=== PATIENT | male | born 1950 | race Caucasian/White ===

== ENCOUNTER 2023-06-01 08:44 | Inpatient (IN) ==
--- NOTE | 2023-06-01 09:14 | Emergency Department Note ---
History of Present Illness General Chief complaint: Wound Stated complaint: POSSIBLE INFECTION IN WOUND Time Seen by Provider: 06/01/23 08:56 History of Present Illness 72-year-old incarcerated male with past medical history significant for A-fib on Eliquis, thoracic aortic aneurysm, venous insufficiency, hypertension, hyperlipidemia, CVA who presents to the emergency department via EMS for evaluation of left leg wound infection. Patient is relatively poor historian and does have dementia at baseline. Reportedly he has a chronic wound to the left leg and there is concerns for infection. He notes increasing redness, warmth, pain at the wound site as well as fevers. Patient is reportedly more confused than usual. He does receive wound care at the present and is currently on doxycycline twice daily since 05/24. Patient denies any nausea/vomiting, chest pain, shortness of breath, abdominal pain, diarrhea/constipation, urinary symptoms. Home Medications Medication Instructions Recorded Confirmed Type apixaban 5 mg tablet (Eliquis) 5 mg PO BID 06/30/21 06/01/23 History rosuvastatin 10 mg tablet 10 mg PO QAM 11/11/21 06/01/23 History pantoprazole 20 mg tablet,delayed 20 mg PO QAM 10/09/22 06/01/23 History release (Protonix) pentoxifylline 400 mg 400 mg PO BID 10/09/22 06/01/23 History tablet,extended release ammonium lactate 12 % topical cream 1 applic topical DAILY 03/26/23 03/26/23 History ascorbic acid (vitamin C) 500 mg 500 mg PO BID 03/26/23 06/01/23 History chewable tablet cetirizine 10 mg tablet 10 mg PO DAILY 03/26/23 03/26/23 History clotrimazole 1 % topical cream 1 applic topical BID 03/26/23 03/26/23 History donepezil 10 mg tablet 10 mg PO QAM 03/26/23 06/01/23 History melatonin 5 mg chewable tablet 0 mg PO HS 03/26/23 03/26/23 History metoprolol tartrate 50 mg tablet 25 mg PO DAILY 03/26/23 03/26/23 History (Lopressor) zinc sulfate 50 mg zinc (220 mg) 50 mg PO DAILY 03/26/23 06/01/23 History capsule amoxicillin 875 mg-potassium 1 tab PO BID #14 tabs 03/27/23 Rx clavulanate 125 mg tablet doxycycline hyclate 100 mg BID 06/01/23 06/01/23 History metoprolol tartrate 12.5 mg DAILY 06/01/23 06/01/23 History Allergies Allergy/AdvReac Type Severity Reaction Status Date / Time sulfamethoxazole Allergy Severe Unknown Verified 05/17/23 13:52 [From Bactrim] trimethoprim [From Bactrim] Allergy Severe Unknown Verified 05/17/23 13:52 clindamycin Allergy Intermediate Unknown Verified 05/17/23 13:52 levofloxacin [From Levaquin] Allergy Intermediate Unknown Verified 05/17/23 13:52 onion Allergy Mild Unknown Verified 05/17/23 13:52 mayonnaise Allergy Unknown Verified 05/17/23 13:52 sodium chloride AdvReac Unknown CONTRAINDIC Verified 05/17/23 13:52 [From [place] Nasal] ATED Past Med/Surg History Medical History CVA (cerebrovascular accident) DVT (deep venous thrombosis) GERD (gastroesophageal reflux disease) H/O: HTN (hypertension) Surgical History No pertinent past surgical history Social History Smoking Status: Unknown if ever smoked Preferred Language: Latvian Feels Safe at Home: Hesitant to Answer Physical Exam Vital Signs Vital Signs - 24 hr 06/01/23 08:45 06/01/23 09:07 06/01/23 09:37 Temperature 37.4 C Temperature Source Oral Pulse Rate 79 74 Pulse Rate [Apical] 73 Pulse Rhythm Regular Pulse Rhythm [Apical] Regular Pulse Strength Normal Pulse Strength [Apical] Normal Respiratory Rate 18 18 Respiratory Effort / Characteristics Non-Labored Spontaneous Non-Labored Spontaneous Respiratory Depth Normal Normal Respiratory Pattern Regular Regular Blood Pressure 137/92 Blood Pressure [Right Arm] 134/86 Blood Pressure Mean 107 Blood Pressure Mean [Right Arm] 102 Blood Pressure Position Sitting Blood Pressure Position [Right Arm] Sitting Pulse Oximetry 94 94 Oxygen Delivery Method Room Air Room Air Sepsis Recent Fever Within 48 Hours Yes Sepsis New/Unexplained Change in Mental Status Yes Sepsis Action Taken by Nursing No Action Required 06/01/23 11:37 Temperature Temperature Source Pulse Rate Pulse Rate [Apical] 70 Pulse Rhythm Pulse Rhythm [Apical] Regular Pulse Strength Pulse Strength [Apical] Normal Respiratory Rate 20 Respiratory Effort / Characteristics Non-Labored Spontaneous Respiratory Depth Normal Respiratory Pattern Regular Blood Pressure Blood Pressure [Right Arm] 141/85 H Blood Pressure Mean Blood Pressure Mean [Right Arm] 103 Blood Pressure Position Blood Pressure Position [Right Arm] Sitting Pulse Oximetry 97 Oxygen Delivery Method Room Air Sepsis Recent Fever Within 48 Hours Sepsis New/Unexplained Change in Mental Status Sepsis Action Taken by Nursing Constitutional: alert and oriented x3. no acute distress. Nontoxic HEENT: normocephalic, atraumatic. normal conjunctiva.PERRLA. EOM's grossly intact. Neck: neck is supple, nontender. Respiratory: lungs are clear to auscultation without wheezes, rhonchi, or rales bilaterally. equal chest rise. normal respiratory effort, no accessory muscle use. Cardiovascular: normal heart sounds without murmur. regular rate and rhythm. GI: abdomen is soft, nontender. No palpable masses. No rebound tenderness or guarding. MSK: Venous stasis skin changes to bilateral lower extremities. Small ulcerations of the left medial ankle with surrounding erythema that extends to the mid calf. Mild purulent drainage and induration as well as tenderness with palpation. Lower extremity range of motion intact Peripheral vascular: Lower extremities warm and well perfused with palpable pedal pulses. Brisk capillary refill of all digits. Motor function and sensation grossly intact Neuro: without focal neuro deficits. Answers questions appropriately, follows commands CNII-XII intact. Speech clear, tongue midline, without facial droop. Strength equal throughout all for extremities. Psych:appropriate mood and affect. Course Administered Medications Vancomycin HCl 2,250 mg/ (Sodium Chloride) 545 mls @ 200 mls/hr IV NOW ONE Stop: 06/01/23 14:03 Last Admin: 06/01/23 13:08 Dose: 200 mls/hr Documented By: DEREK Discontinued Medications Cefepime HCl (Maxipime) 2,000 mg in 20 mls @ 5 mls/min IV NOW STA; Protocol Stop: 06/01/23 11:23 Last Admin: 06/01/23 11:33 Dose: 5 mls/min Documented By: DEREK Medical Decision Making Differential Diagnosis cellulitis, venous stasis ulcers, PAD, sepsis, DVT as well as other pathologies Laboratory Data Attestation: I reviewed the patient's lab results. 06/01/23 09:30 06/01/23 09:30 Lab Results 06/01/23 06/01/23 06/01/23 Range/Units 09:30 09:30 09:30 WBC 7.79 (4.8-10.8) K/ul RBC 4.54 L (4.70-6.10) M/uL Hgb 13.4 L (14.0-18.0) g/dl Hct 38.7 L (42.0-52.0) % MCV 85.2 (80.0-100.0) fL MCH 29.5 (25.0-34.0) pg MCHC 34.6 (32.0-36.0) g/dL RDW Std Deviation 42.1 (36.4-46.3) fL RDW Coeff of Ruben 13.6 (11.5-14.5) % Plt Count 141 (130-400) K/uL MPV 11.1 (9.4-12.4) fL Immature Gran % (Auto) 0.1 % Neut % (Auto) 87.7 % Lymph % (Auto) 4.7 % [place] % (Auto) 6.8 % Eos % (Auto) 0.4 % Baso % (Auto) 0.3 % Neut # (Auto) 6.83 H (1.40-6.50) K/uL Lymph # (Auto) 0.37 L (1.20-3.40) K/uL [place] # (Auto) 0.53 (0.11-0.59) K/uL Eos # (Auto) 0.03 (0.00-0.50) K/uL Baso # (Auto) 0.02 (0.00-0.20) K/uL Immature Gran # (Auto) 0.01 (0.01-0.20) K/uL Sodium 137 (136-145) mmol/L Potassium 4.0 (3.5-5.1) mmol/L Chloride 103 (98-107) mmol/L Carbon Dioxide 28 (21-32) mmol/L Anion Gap 6 (3-11) BUN 20 (6-23) mg/dl Creatinine 0.82 (0.6-1.4) mg/dl Est Cr Clr Drug Dosing 90.7 ml/min Est GFR ( Amer) 103.1 ml/min Est GFR (Non-Af Amer) 89.0 ml/min BUN/Creatinine Ratio 24.4 H (10-20) Glucose 97 (70-99(Fasting)) mg/dl Lactate 1.2 (0.4-2.0) mmol/L Calcium 10.3 (8.6-10.3) mg/dl Total Bilirubin 1.4 H (0.2-1.0) mg/dl AST 20 (13-39) U/L ALT 12 (7-52) U/L Alkaline Phosphatase 71 (34-104) U/L Troponin I High Sens 11.7 (0-20) pg/ml Total Protein 8.1 (6.0-8.3) gm/dl Albumin 4.7 (3.4-5.0) gm/dl Globulin 3.4 (2.5-4.0) gm/dl Albumin/Globulin Ratio 1.4 (0.9-2) Imaging Data My Impression: CXR per my interpretation without focal consolidation, pneumothorax, pleural effusion Radiologist's Impression: Chest X-Ray 06/01/23 09:06 XR chest 1V portable HISTORY: 72 years-old Male CP acute chest pain COMPARISON: 05/17/2023 TECHNIQUE: AP view of the chest FINDINGS: Cardiac silhouette is enlarged. Interval removal of the right-sided PICC. No pneumothorax, pleural effusion, airspace consolidation or pulmonary edema. Bones appear grossly intact. IMPRESSION: Cardiomegaly without acute process. ACT 112: Negative or not required by law. The above report was generated using voice recognition software. It may contain grammatical, syntax or spelling errors. Electronically signed by: Sherwin Goode M.D. 06/01/2023 9:56 AM Venous Doppler Study 06/01/23 09:49 LEFT LOWER EXTREMITY VENOUS DOPPLER HISTORY: Acute pain and swelling of the left lower extremity. History of nonocclusive thrombus within the left iliac, common femoral, superficial femoral, popliteal, posterior tibial and peroneal veins. r/o DVT COMPARISON STUDY: 10/09/2022. FINDINGS: Chronic nonocclusive thrombus is again noted within the common femoral and superficial femoral veins extending into the popliteal vein. Limited evaluation of the peroneal and posterior tibial veins. No acute DVT identified. Subcutaneous edema. Mildly enlarging lymph chain lymph nodes measure up to 1.3 cm in short axis. IMPRESSION: 2. No acute DVT identified. 2. Chronic nonocclusive DVT redemonstrated. 3. Nonspecific mildly enlarged inguinal chain lymph nodes. ACT 112: Negative or not required by law. Electronically signed by: Sherwin Goode M.D. 06/01/2023 1:09 PM MDM Narrative 72-year-old inmate male who presents to the emergency department for evaluation of left leg cellulitis. Review of pertinent visits and past medical history performed. Vital signs in ED stable, afebrile. Patient was seen and evaluated as above. IV access was established and labs were obtained. CBC without leukocytosis. No acute anemia. CMP without significant electrolyte abnormal ities. Renal function within normal limits. LFTs unremarkable. Lactate 1.2. Troponin negative. EKG demonstrates atrial fibrillation with incomplete right bundle branch block at a rate of 81 bpm. No evidence of ischemic changes or ST wave abnormalities. No significant change when compared to EKG performed on 03/26/2023. CXR performed and unremarkable. A venous duplex of the left lower leg was also performed due to swelling and history of DVT and negative for acute DVT. On exam, patient is nontoxic-appearing in no acute distress. Hemodynamically stable. He has chronic venous stasis skin changes to the bilateral lower extremities with 2 small ulcerations to the left medial ankle at the malleolus. There is surrounding erythema, warmth induration and drainage. No foul odor. The extremities are neurovascularly intact with good pulses. Wound and blood cultures were obtained. Patient was reassessed on multiple occasions throughout ED stay and remained stable. He was updated on exam findings and test results. His evidence of cellulitis secondary to his chronic leg wounds. He is not septic. He has failed outpatient antibiotic therapy however and I am recommending admission to the hospital for IV antibiotics. Patient agreeable to this plan. Case was discussed with hospitalist physician orthotic assistant, Earlene Mccann, who graciously accepted patient to her service. Patient was given IV vancomycin and cefepime empirically pending wound and blood cultures. He was admitted in stable condition. Case was discussed with ED attending, Dr. Hodge who agrees with work-up and treatment plan Impression & Plan Venous stasis ulcer of left lower extremity, Cellulitis of left leg Discharge Plan Visit Data Chief Complaint: Wound Stated Complaint: POSSIBLE INFECTION IN WOUND ED Provider: Shannon Hodge ED Midlevel Provider: Minoo Castillo Discharge Problem: Venous stasis ulcer of left lower extremity, Cellulitis of left leg Patient Disposition: Admitted As Inpatient Forms Stand Alone Forms: My [facility] Prescriptions Prescriptions: No Action Eliquis 5 mg Tablet 5 mg PO BID cetirizine 10 mg Tablet 10 mg PO DAILY donepezil 10 mg Tablet 10 mg PO QAM melatonin 5 mg Tablet,Chewable 0 mg PO HS metoprolol tartrate [Lopressor] 50 mg Tablet 25 mg PO DAILY ammonium lactate 12 % Cream 1 applic TOPICAL DAILY Rx Instructions: APPLY CREAM TOPICALLY ONCE DAILY, WITH DRESSING CHANGE. ascorbic acid (vitamin C) 500 mg Tablet,Chewable 500 mg PO BID zinc sulfate 50 mg zinc (220 mg) Capsule 50 mg PO DAILY clotrimazole 1 % Cream 1 applic TOPICAL BID Rx Instructions: APPLY TWICE DAILY BETWEEN TOES amoxicillin-pot clavulanate 875-125 mg tablet 1 tab PO BID Qty: 14 0RF rosuvastatin 10 mg Tablet 10 mg PO QAM pentoxifylline [Trental] 400 mg Tablet Extended Release 400 mg PO BID Rx Instructions: must administer with a meal/food pantoprazole [Protonix] 20 mg Tablet,Delayed Release (Dr/Ec) 20 mg PO QAM doxycycline hyclate 100 mg BID metoprolol tartrate 25 mg tablet 12.5 mg DAILY [facility]errals [facility] -
[2023-06-01 09:56] LABS: Basophils # (auto) 0.02 K/uL (0.00-0.20); Basophils % (auto) 0.3 %; Eosinophils # (auto) 0.03 K/uL (0.00-0.50); Eosinophils % (auto) 0.4 %; Hematocrit (blood only) 38.7 % (42.0-52.0); Hemoglobin 13.4 g/dl (14.0-18.0); Immature Granulocytes # (auto) 0.01 K/uL (0.01-0.20); Immature Granulocytes % (auto) 0.1 %; Lymphocytes # (auto) 0.37 K/uL (1.20-3.40); Lymphocytes % (auto) 4.7 %; Mean Corpuscular Hemoglobin 29.5 pg (25.0-34.0); Mean Corpuscular Hgb Conc 34.6 g/dL (32.0-36.0); Mean Corpuscular Volume 85.2 fL (80.0-100.0); Mean Platelet Volume 11.1 fL (9.4-12.4); Monocytes # (auto) 0.53 K/uL (0.11-0.59); Monocytes % (auto) 6.8 %; Neutrophils # (auto) 6.83 K/uL (1.40-6.50); Neutrophils % (auto) 87.7 %; Platelet Count 141 K/uL (130-400); RDW Coefficient of Variation 13.6 % (11.5-14.5); RDW Standard Deviation 42.1 fL (36.4-46.3); Red Blood Count 4.54 M/uL (4.70-6.10); White Blood Count 7.79 K/ul (4.8-10.8)
--- NOTE | 2023-06-01 09:57 | XRay Report ---
XR chest 1V portable HISTORY: 72 years-old Male CP acute chest pain COMPARISON: 05/17/2023 TECHNIQUE: AP view of the chest FINDINGS: Cardiac silhouette is enlarged. Interval removal of the right-sided PICC. No pneumothorax, pleural ef fusion, airspace consolidation or pulmonary edema. Bones appear grossly intact. IMPRESSION: Cardiomegaly without acute process. ACT 112: Negative or not required by law. The above report was generated using voice recognition software. It may contain grammatical, syntax o r spelling errors. Electronically signed by: Sherwin Goode M.D. 06/01/2023 9:56 AM
[2023-06-01 10:17] LABS: Albumin Level 4.7 gm/dl (3.4-5.0); Bilirubin,Total 1.4 mg/dl (0.2-1.0); Calcium 10.3 mg/dl (8.6-10.3)
[2023-06-01 10:23] LABS: Albumin Globulin Ratio 1.4 (0.9-2); BUN Creatinine Ratio 24.4 (10-20); Creatinine Clr Calc Pharmacy 90.7 ml/min; Est GFR (African American) 103.1 ml/min; Globulin 3.4 gm/dl (2.5-4.0); Total Protein 8.1 gm/dl (6.0-8.3); Troponin I High Sensitivity 11.7 pg/ml (0-20)
[2023-06-01] MEDS ORDERED: CEFEPIME 2,000 MG/20 ML VIAL IV STA (11:20)
[2023-06-01] MEDS ORDERED: VANCOMYCIN HCL 2,250 MG in SODIUM CHLORIDE 0.9% 500 ML IV ONE (11:20)
[2023-06-01] MEDS ORDERED: VANCOMYCIN CONSULT ACTIVE PRN ×2 (11:20→17:16)
--- NOTE | 2023-06-01 13:11 | Ultrasound Report ---
LEFT LOWER EXTREMITY VENOUS DOPPLER HISTORY: Acute pain and swelling of the left lower extremity. History of nonocclusive thrombus within the left iliac, common femoral, superficial femoral, popliteal, posterior tibial and peroneal veins. r/o DVT COMPARISON STUDY: 10/09/2022. FINDINGS: Chronic nonocclusive thrombus is again noted within the common femoral and superficial femo ral veins extending into the popliteal vein. Limited evaluation of the peroneal and posterior tibial veins. No acute DVT identified. Subcutaneous edema. Mildly enlarging lymph chain lymph nodes measure up to 1.3 cm in short axis. IMPRESSION: 2. No acute DVT identified. 2. Chronic nonocclusive DVT redemonstrated. 3. Nonspecific mildly enlarged inguinal chain lymph nodes. ACT 112: Negative or not required by law. Electronically signed by: Sherwin Goode M.D. 06/01/2023 1:09 PM
--- NOTE | 2023-06-01 13:18 | History & Physical Report ---
Date of Service June 01, 2023 Assessment & Plan (1) Cellulitis of left leg: (2) Inguinal lymphadenopathy: (3) Chronic bilateral deep venous thrombosis (DVT) of extremities: (4) Ulcer of left foot: (5) Venous insufficiency of both lower extremities: (6) Leg wound, left: (7) Venous stasis ulcer of left lower extremity: (8) Confusion: (9) Atrial fibrillation: (10) HLD (hyperlipidemia): Plan Pt is a 72yo incarcerated male with PMHx significant for PVD with chronic ulce rs, atrial fibrillation on Eliquis, HTN, GERD, Dementia, Hx of thoracic aneurysm presenting from the halfway with concern for increasing confusion in the setting of a LLE chronic wound. Cellulitis/Chronic wound of LLE/PVD/Chronic DVT Per documentation from the halfway, pt was sent over due to "wound on LLE, calf warm to touch, severe pain when moving and evaluating wound, increased confusion". Guards present at bedside note pt resides in Dementia unit at the halfway and is confused at baseline. They state he usually has eyes closed as he was during the exam. On exam, about a 2cm x 2cm draining ulceration noted on left medial ankle in the setting of noted chronic PVD changes to left ankle and foot [facility] paperwork noted temp of 101.9 today, pt currently afebrile WBC wnl, venous doppler of LLE noting only chronic DVT with increased inguinal lymph node size. 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 Consider further imaging of inguinal lymphadenopathy. MRI ankle ordered and pending, wound Cx and Blood Cx x2 ordered by ED and are pending. Was being treated with Doxycycline 100mg BID from 05/24 HVAC ESTIMATOR, will hold. Received IV Vancomycin and Cefepime in the ED, continue. Consider narrowing based on culture results. Tylenol 1000mg q8 for mild-mod pain, IV dilaudid 0.25mg q6h for severe pain AM hemoglobin a1c pending- pt with no previous dx of diabetes Continue HVAC ESTIMATOR zinc sulfate and trental 400mg BID. Wound consult- appreciate further recommendations. AMS/Confusion/Dementia Guards present at bedside note pt resides in Dementia unit at the halfway and is confused at baseline. They state he usually has eyes closed as he was during the exam, does not appear to be increasingly confused. Head CT ordered Continue HVAC ESTIMATOR donepezil 10mg daily Inguinal lymphadenopathy Doppler US of LLE noted increased inguinal lymph node size Previously noted and pt was referred to medical oncology who referred to General Surgery for biopsy. See General Surgery note in chart from 04/2022, pt was for biopsy but refused at that time. Consider further workup now that lymph nodes are increasing in size Chronic Medical Problems: A fib- continue HVAC ESTIMATOR metoprolol tartrate 12.5mg daily with Eliquis 5mg BID GERD- per halfway documentation pt on both omeprazole 20mg daily and pantoprazole 20mg daily. Omeprazole discontinued, continue pantoprazole 20mg daily only and increase dose as needed after discharge. HLD- continue HVAC ESTIMATOR rosuvastatin FEN/Diet: NPO with speech eval in the setting of AMS/increased confusion, LR@80 DVT prophylaxis: On Eliquis 5mg BID Dispo: Obs, med surg with tele due to a fib CODE STATUS: Pt with signed documentation from the halfway from 2015 noting he wants CPR, resp ventilation, blood products and abx. Does not want tube feeds if the need for that arises. History of Present Illness Chief Complaint: Wound Primary Care Provider: ZARIA Sylvie Pt is a 72yo incarcerated male with PMHx significant for PVD with chronic ulcers, atrial fibrillation on Eliquis, HTN, GERD, Dementia, Hx of thoracic aneurysm presenting from the halfway with concern for increasing confusion in the setting of a LLE chronic wound. Pt sitting with eyes closed, muttering when stimulated but with generally unintelligible speech. Hx obtained from transfer documentation from the halfway, guards present in the room and past records in the chart. Per transfer documentation from the halfway, pt was sent over due to "wound on LLE, calf warm to touch, severe pain when moving and evaluating wound, increased confusion" for the past few days. Guards present at bedside note pt resides in the dementia unit at the halfway and is confused at baseline. They state he usually has eyes closed and appears sleepy. They state that he was sent over due to concern that the lower extremity wound was making him more sleepy but it appears he is at baseline. Per documentation, pt was being treated at the halfway with doxycycline 100mg BID from 05/24 with last dose this AM. Chart review shows there has been concern in the past for AMS as well as stroke. However, head imaging was all unremarkable with no acute changes. The guards also note that the pt occasionally winces and complains of pain with any movement. Was being treated with Tylenol 500mg BID PRN with last dose this AM. ED Course: IV Vancomycin and Cefepime Allergies Allergy/AdvReac Type Severity Reaction Status Date / Time sulfamethoxazole Allergy Severe Unknown Verified 05/17/23 13:52 [From Bactrim] trimethoprim [From Bactrim] Allergy Severe Unknown Verified 05/17/23 13:52 clindamycin Allergy Intermediate Unknown Verified 05/17/23 13:52 levofloxacin [From Levaquin] Allergy Intermediate Unknown Verified 05/17/23 13:52 onion Allergy Mild Unknown Verified 05/17/23 13:52 mayonnaise Allergy Unknown Verified 05/17/23 13:52 sodium chloride AdvReac Unknown CONTRAINDIC Verified 05/17/23 13:52 [From [place] Nasal] ATED Home Medications Medication Instructions Recorded Confirmed Type apixaban 5 mg tablet (Eliquis) 5 mg PO BID 06/30/21 06/01/23 History rosuvastatin 10 mg tablet 10 mg PO QAM 11/11/21 06/01/23 History pantoprazole 20 mg tablet,delayed 20 mg PO QAM 10/09/22 06/01/23 History release (Protonix) pentoxifylline 400 mg 400 mg PO BID 10/09/22 06/01/23 History tablet,extended release ammonium lactate 12 % topical cream 1 applic topical DAILY 03/26/23 03/26/23 History ascorbic acid (vitamin C) 500 mg 500 mg PO BID 03/26/23 06/01/23 History chewable tablet cetirizine 10 mg tablet 10 mg PO DAILY 03/26/23 03/26/23 History clotrimazole 1 % topical cream 1 applic topical BID 03/26/23 03/26/23 History donepezil 10 mg tablet 10 mg PO QAM 03/26/23 06/01/23 History melatonin 5 mg chewable tablet 0 mg PO HS 03/26/23 03/26/23 History metoprolol tartrate 50 mg tablet 25 mg PO DAILY 03/26/23 03/26/23 History (Lopressor) zinc sulfate 50 mg zinc (220 mg) 50 mg PO DAILY 03/26/23 06/01/23 History capsule amoxicillin 875 mg-potassium 1 tab PO BID #14 tabs 03/27/23 Rx clavulanate 125 mg tablet doxycycline hyclate 100 mg BID 06/01/23 06/01/23 History metoprolol tartrate 12.5 mg DAILY 06/01/23 06/01/23 History Past Med/Surg History Medical History CVA (cerebrovascular accident) DVT (deep venous thrombosis) GERD (gastroesophageal reflux disease) H/O: HTN (hypertension) Surgical History No pertinent past surgical history Social History Smoking Status: Unknown if ever smoked Preferred Language: Bulgarian Feels Safe at Home: Hesitant to Answer Review of Systems Review of Systems: Unobtainable due to reduced consciousness Physical Exam Physical Exam: General: No acute distress, sitting with eyes closed, mumbling incoherently when stimulated. Skin: about a 2cm x 2cm draining ulceration noted on left medial ankle in the setting of noted chronic PVD changes to left ankle and foot Psych: could not be assessed HEENT: NC/AT CV: Irregular RR Resp: no increased effort of breathing Abdomen: Soft, tender (moves with pain) Extremities: about a 2cm x 2cm draining ulceration noted on left medial ankle in the setting of noted chronic PVD changes to left ankle and foot. Results & Data Results & Data Vital Signs (Past 12 Hours) Vital Signs Temp Pulse Pulse Resp BP BP Pulse Ox 06/01/23 09:37 73 18 134/86 94 06/01/23 09:07 74 06/01/23 08:45 37.4 C 79 18 137/92 94 O2 Del Method 06/01/23 09:37 Room Air 06/01/23 09:07 06/01/23 08:45 Room Air Code Status & VTE Plan VTE Prophylaxis Plan VTE Prophylaxis will be ordered: Yes (6) Leg wound, left Encounter type: initial encounter Qualified Code(s): S81.802A - Unspecified open wound, left lower leg, initial encounter
--- NOTE | 2023-06-01 13:39 | Emergency Department Note ---
ED Visit Note Patient seen in conjunction with GWENDOLYN. Patient presents from detention where he is currently being treated for cellulitis of the lower extremities with oral doxycycline. He reportedly has been having worsening redness despite the antibiotic treatment. Also reportedly having fevers and more confused than normal from his baseline dementia. He was sent in for concern for worsening infection and failure of outpatient antibiotic therapy. Patient does have notable small ulcerations to the medial ankle with erythema and warmth to the surrounding area. Wound cultures were obtained. Plan to admit the patient for inpatient IV antibiotic therapy due to his cellulitis and failure of outpatient treatment. .
[2023-06-01] MEDS ORDERED: ACETAMINOPHEN 500 MG TAB PO PRN (17:16)
[2023-06-01] MEDS ORDERED: HYDROmorphone INJ 0.5 MG/0.5 ML SYR IV PRN (17:16)
[2023-06-01] MEDS ORDERED: POLYETHYLENE (MIRALAX) 17 GM PACK PO PRN (17:16)
[2023-06-01] MEDS ORDERED: VANCOMYCIN HCL 1,250 MG in SODIUM CHLORIDE 0.9% 500 ML IV SCH (17:16)
--- NOTE | 2023-06-01 19:05 | XRay Report ---
XR KUB/Abdomen 1 view CLINICAL HISTORY: for mri TECHNIQUE: 1 view of the abdomen was obtained. Comparison: None available at the time of this dictation. FINDINGS: IVC filter is seen. Degenerative changes are seen in the visualized skeleton. The bowel gas pattern i s nonobstructive. A moderate amount of stool is noted within the large bowel. IMPRESSION: IVC filter without other metallic foreign body. ACT 112: Negative or not required by law. Electronically signed by: Jerzy Levine M.D. 06/01/2023 7:04 PM
--- NOTE | 2023-06-01 19:06 | CT Scan Report ---
CT head/brain wo con CLINICAL HISTORY: increased confusion Technique: Contiguous axial CT images of the head were acquired from the base of the skull to the nadege kallie without intravenous contrast administration. Images were viewed in brain, subdural and bone [facility]. Automated dose lowering techniques and/or adjustment according to patient size were utilized for this exam. Comparison: None available at the time of this dictation. Findings: The ventricles, basal cisterns, and cerebral sulci are normal. There is no acute intracranial hemorrh age or evidence of acute territorial infarction. Neither mass effect, shift of the midline structures , nor abnormal extra-axial fluid collections are shown. Imaged portions of the paranasal sinuses and mastoid air cells are clear. The orbits appear normal. There are no acute fractures of the calvaria or scalp swelling. Impression: No acute intracranial hemorrhage, no evidence of acute territorial infarction or other acute intracra nial disease process. No metallic foreign body is seen. ACT 112: Negative or not required by law. Electronically signed by: Jerzy Levine M.D. 06/01/2023 7:05 PM
[2023-06-01] MEDS ORDERED: PNEUMOCOCCAL Polysaccharide Vaccine 25mcg/0.5mL vial/Syr IM ONE (19:30)
[2023-06-01] MEDS: LACTATED RINGER'S 1,000 ML IV SCH (20:34)
[2023-06-01] MEDS: APIXABAN 5 MG TABLET PO SCH (20:34)
[2023-06-01 20:48] LABS: Appearance Urine Clear (Clear); Bacteria Urine Automated Negative (Negative); Bilirubin Urine Negative (Negative); Blood Urine Negative (Negative); Color Urine Dark Yellow; Epithelial Cell Urine Auto 20-30 /lpf (0-5); Glucose Urine UA Negative (Negative); Ketones Urine 2+ (Negative); Leukocyte Esterase Urine Negative (Negative); Nitrite Urine Negative (Negative); Protein Urine 1+ (Negative); RBC Urine Automated 0-4 /hpf (0-4); Specific Gravity Urine 1.025 (1.000-1.030); Urobilinogen Urine Negative (Negative)
--- NOTE | 2023-06-01 20:58 | Magnetic Resonance Report ---
Exam(s): MRI LEFT ANKLE Without Contrast EXAM: MR Left Lower Extremity Without Intravenous Contrast, Ankle CLINICAL HISTORY: Reason for exam: chronic wound, r/o osteomyelitis. TECHNIQUE: Multiplanar magnetic resonance images of the left ankle without intravenous contrast. COMPARISON: No relevant prior studies available. FINDINGS: Intact tibiotalar, subtalar, calcaneocuboid, and talonavicular joints. Intact distal Achilles tendon. Intact plantar fascia. Moderate synovitis in the sinus tarsi. Mild posterior tibial tenosynovitis. Intact lateral peroneal tendons. Intact anterior extensor tendons. Mild medial subcutaneous edema with medial soft tissue venous varicosities. Intact syndesmotic ligaments. Intact anterior talofibular and calcaneofibular ligaments. Intact deep and superficial components of the deltoid ligament. IMPRESSION: Moderate synovitis in the sinus tarsi. Mild medial subcutaneous edema with medial soft tissue venous varicosities. Mild posterior tibial tenosynovitis. Electronically signed by: Kyree Cordova MD 06/01/23 20:57 PM
[2023-06-01] MEDS ORDERED: CEFEPIME 2,000 MG in SYRINGE 0 ML IV SCH (23:00)
[2023-06-02] MEDS: VANCOMYCIN HCL 1,000 MG in SODIUM CHLORIDE 0.9% 250 ML IV SCH ×2 (00:03→13:05)
[2023-06-02 01:50] LABS: A calco-baum cmplx NotReported Not Detected (NotDetected); Bact fragilis Not Reported Not Detected (NotDetected); C auris Not Reported Not Detected (NotDetected); CTX-M Resistant Gene Not Detected (NotDetected); Calbicans Not Reported Not Detected (NotDetected); Candida glabrata Not Reported Not Detected (NotDetected); Candida krusei Not Reported Not Detected (NotDetected); Cneoformans/gatti Not Reported Not Detected (NotDetected); Cparapsilosis Not Reported Not Detected (NotDetected); Ctropicalis Not Reported Not Detected (NotDetected); E cloacae compx Not Reported Not Detected (NotDetected); Efaecalis Not Reported Not Detected (NotDetected); Efaecium Not Reported Not Detected (NotDetected); Enterobacterales Not Reported DETECTED (NotDetected); Escherichia coli Not Reported Not Detected (NotDetected); H influenzae Not Reported Not Detected (NotDetected); IMP Resistant Gene Not Detected (NotDetected); K aerogenes Not Reported Not Detected (NotDetected); KPC Resistant Gene Not Detected (NotDetected); Koxytoca Not Reported Not Detected (NotDetected); Kpneumoniae grp Not Reported Not Detected (NotDetected); Lmonocyt Not Reported Not Detected (NotDetected); N meningitidis Not Reported Not Detected (NotDetected); NDM Resistant Gene Not Detected (NotDetected); OXA 48 Like Resistant Gene Not Detected (NotDetected); P aeruginosa Not Reported Not Detected (NotDetected); Proteus spp Not Reported Not Detected (NotDetected); Salmonella spp Not Reported Not Detected (NotDetected); Smarcescens Not Reported Not Detected (NotDetected); Staph lugdunensis Not Reported Not Detected (NotDetected); Staph spp. Not Reported Not Detected (NotDetected); Staphaureus Not Reported Not Detected (NotDetected); Staphepi Not Reported Not Detected (NotDetected); Stenmaltophilia Not Reported Not Detected (NotDetected); Strep agal(GrpB) Not Reported Not Detected (NotDetected); Strep pneum Not Reported Not Detected (NotDetected); Strep pyog (GrpA) Not Reported Not Detected (NotDetected); Strep spp Not Reported Not Detected (NotDetected); VIM Resistant Gene Not Detected (NotDetected)
[2023-06-02 03:01] LABS: Enterobacterales DETECTED (NotDetected)
[2023-06-02] MEDS: PANTOprazole 40 MG TAB PO SCH (08:07)
[2023-06-02] MEDS: ROSUVASTATIN CALCIUM 10 MG TAB PO SCH (08:07)
[2023-06-02] MEDS: DONEPEZIL HCL 10 MG TAB PO SCH (08:08)
[2023-06-02] MEDS: METOPROLOL TARTRATE 25 MG TAB PO SCH (08:08)
[2023-06-02] MEDS: APIXABAN 5 MG TABLET PO SCH ×2 (08:09→21:28)
[2023-06-02] MEDS: ZINC SULFATE 220 MG CAPSULE PO SCH (08:09)
[2023-06-02] MEDS: LACTATED RINGER'S 1,000 ML IV SCH ×2 (08:20→22:30)
[2023-06-02 10:13] LABS: Basophils # (auto) 0.03 K/uL (0.00-0.20); Basophils % (auto) 0.3 %; Eosinophils # (auto) 0.01 K/uL (0.00-0.50); Eosinophils % (auto) 0.1 %; Hematocrit (blood only) 33.3 % (42.0-52.0); Hemoglobin 11.6 g/dl (14.0-18.0); Immature Granulocytes # (auto) 0.05 K/uL (0.01-0.20); Immature Granulocytes % (auto) 0.5 %; Lymphocytes # (auto) 1.08 K/uL (1.20-3.40); Lymphocytes % (auto) 10.3 %; Mean Corpuscular Hemoglobin 29.1 pg (25.0-34.0); Mean Corpuscular Hgb Conc 34.8 g/dL (32.0-36.0); Mean Corpuscular Volume 83.7 fL (80.0-100.0); Mean Platelet Volume 11.6 fL (9.4-12.4); Monocytes # (auto) 1.15 K/uL (0.11-0.59); Neutrophils # (auto) 8.13 K/uL (1.40-6.50); Neutrophils % (auto) 77.8 %; Platelet Count 131 K/uL (130-400); RDW Coefficient of Variation 13.5 % (11.5-14.5); RDW Standard Deviation 41.9 fL (36.4-46.3); Red Blood Count 3.98 M/uL (4.70-6.10); White Blood Count 10.45 K/ul (4.8-10.8)
[2023-06-02 10:27] LABS: BUN Creatinine Ratio 25.9 (10-20); Calcium 9.2 mg/dl (8.6-10.3); Creatinine Clr Calc Pharmacy 87.5 ml/min; Est GFR (African American) 101.6 ml/min; Est GFR (Non-African American) 87.7 ml/min; Potassium 3.6 mmol/L (3.5-5.1)
[2023-06-02] MEDS: CEFEPIME 2,000 MG in SYRINGE 0 ML IV SCH ×2 (10:29→17:20)
--- NOTE | 2023-06-02 10:57 | Pharmacy Report ---
Pharmacy PK ABX Note - Date of Service June 02, 2023 - Assessment and Plan Assessment 72 year old M receiving empiric vancomycin and cefepime for treatment of left leg cellulitis. Pertinent microbiologic data includes: Positive MRSA Nasal Swab, blood cultures x 2 growing gram-negative bacilli. BCID-2 reveals Enterobacterales (CTX-M: negative). Ankle culture growing two gram-negative organisms. Current broad spectrum regimen is appropriate at this time give positive MRSA swab. Await culture finalization and de-escalate as able. Day # 2 of antimicrobial therapy. Plan Vancomycin * Loading dose: 2250 mg IV x 1 * Maintenance dose: 1000 mg IV every 12 hours * Regimen is predicted to achieve target AUC/TED of 400-600 mg/L.hr * Random level ordered for: 06/03/23 Cefepime * 2 g IV q8h - dose increased from q12h in light of positive blood cultures Pharmacy will continue to follow and will adjust dose/frequency as necessary. Thank you. Pharmacy has transitioned to AUC monitoring for vancomycin. AUC/TED is the preferred PK/PD target and is associated with decreased risk of nephrotoxicity compared to traditional trough targets.
[2023-06-02 11:37] LABS: Estimated Average Glucose 117 mg/dl; Hemoglobin A1C 5.7 % (4.5-5.6)
--- NOTE | 2023-06-02 11:58 | Ultrasound Report ---
US arterial duplex left lower extremity CLINICAL HISTORY: history of peripheral arterial disease, left ankle ulcer COMPARISON STUDY: None. FINDINGS: The patient was unable to tolerate the blood pressure cuff on the calf/ankle due to the pat ient's skin ulceration. Waveforms within the toes are slightly dampened but symmetric. Normal biphasi c to triphasic waveforms seen within the left lower extremity arterial system. There is mild scattere d calcified plaque. No significant stenosis or occlusion identified. IMPRESSION: No significant stenosis or occlusion within the left lower extremity arterial system. ACT 112: Negative or not required by law. Electronically signed by: Yuval Loaiza M.D. 06/02/2023 11:57 AM
[2023-06-02] MEDS ORDERED: CYCLOBENZAPRINE HCL 10 MG TAB PO STA (17:51)
[2023-06-02] MEDS ORDERED: LIDOCAINE 5% 1 PATCH TD STA (17:57)
--- NOTE | 2023-06-02 18:00 | Electrocardiogram Report ---
Test Reason : Blood Pressure : / mmHG Vent. Rate : 081 BPM Atrial Rate : 000 BPM P-R Int : 000 ms QRS Dur : 092 ms QT Int : 404 ms P-R-T Axes : 000 008 033 degrees QTc Int : 469 ms Atrial fibrillation Incomplete right bundle branch block Abnormal ECG When compared with ECG of 26-MAR-2023 22:09, Vent. rate has increased BY 33 BPM Incomplete right bundle branch block is now Present QT has lengthened Confirmed by Adolfo Coles ([id number]) on 06/02/2023 5:59:34 PM Referred By: [facility] Confirmed By:Cesar Coles
--- NOTE | 2023-06-02 18:00 | Hospitalist Progress Note ---
Date of Service June 02, 2023 Assessment & Plan (1) Leg ulcer, left: (2) Cellulitis of left leg: (3) Inguinal lymphadenopathy: (4) Chronic bilateral deep venous thrombosis (DVT) of extremities: (5) Venous insufficiency of both lower extremities: (6) Leg wound, left: (7) Venous stasis ulcer of left lower extremity: (8) Confusion: (9) Atrial fibrillation: (10) HLD (hyperlipidemia): Plan per admitting service notes with addendum: Pt is a 72yo incarcerated male with PMHx significant for PVD with chronic ulcers, atrial fibrillation on Eliquis, HTN, GERD, Dementia, Hx of thoracic aneurysm presenting from the residential with concern for increasing confusion in the setting of a LLE chronic wound. Cellulitis/Chronic wound of LLE/PVD/Chronic DVT Bacteremia Per documentation from the residential, pt was sent over due to "wound on LLE, calf warm to touch, severe pain when moving and evaluating wound, increased confusion". Guards present at bedside note pt resides in Dementia unit at the residential and is confused at baseline. They state he usually has eyes closed as he was during the exam. On exam, about a 2cm x 2cm draining ulceration noted on left medial ankle in the setting of noted chronic PVD changes to left ankle and foot Alf paperwork noted temp of 101.9 today, pt currently afebrile WBC wnl, venous doppler of LLE noting only chronic DVT with increased inguinal lymph node size. Pt on Eliquis 5mg BID [employer]. Consider further imaging of inguinal lymphadenopathy. MRI ankle ordered and pending, wound Cx and Blood Cx x2 ordered by ED and are pending. Was being treated with Doxycycline 100mg BID from 05/24 [employer] SUPER[employer], will hold. Received IV Vancomycin and Cefepime in the ED, continue. Consider narrowing based on culture results. Tylenol 1000mg q8 for mild-mod pain, IV dilaudid 0.25mg q6h for severe pain AM hemoglobin a1c pending- pt with no previous dx of diabetes Continue [employer] zinc sulfate and trental 400mg BID. Wound consult- appreciate further recommendations. 06/02 arterial doppler: no significant stenosi wound culture: gram negative bacilli blood cultures: gram negative bacilli check L tibia xray to r/o Osteomyelitis Ortho consult ID consult continue Vanco + Cefepime Left Chest Wall Pain likely muscular etiology Rib xray: pending Flexeril trial Lidoderm patch monitor AMS/Confusion/Dementia Guards present at bedside note pt resides in Dementia unit at the residential and is confused at baseline. They state he usually has eyes closed as he was during the exam, does not appear to be increasingly confused. Head CT ordered: no acute process Continue [employer]TER SUPER[employer] donepezil 10mg daily 06/02 appears back to baseline Inguinal lymphadenopathy Doppler US of LLE noted increased inguinal lymph node size Previously noted and pt was referred to medical oncology who referred to General Surgery for biopsy. See General Surgery note in chart from 04/2022, pt was for biopsy but refused at that time. Consider further workup now that lymph nodes are increasing in size Chronic Medical Problems: A fib- continue [employer]PER[employer] metoprolol tartrate 12.5mg daily with Eliquis 5mg BID GERD- per residential documentation pt on both omeprazole 20mg daily and pantoprazole 20mg daily. Omeprazole discontinued, continue pantoprazole 20mg daily only and increase dose as needed after discharge. HLD- continue [employer]TER SUPER[employer]OR rosuvastatin FEN/Diet: NPO with speech eval in the setting of AMS/increased confusion, LR@80 DVT prophylaxis: On Eliquis 5mg BID Dispo: Obs, med surg with tele due to a fib CODE STATUS: Pt with signed documentation from the residential from 2015 noting he wants CPR, resp ventilation, blood products and abx. Does not want tube feeds if the need for that arises. Admission and Anticipated Discharge Date Admission Date: June 02, 2023 Subjective ff up for non healing L lower leg ulcer, etc seen resting in bed, comfortable states he feels fine overall except for localized sharp pain, left anterior chest wall area/axillary area worse with deep inspiration, movement started 2 days ago L lower leg ulcer area pain improving no other symptoms Review of Systems Review of Systems: all noted and negative except for above Physical Exam Physical Exam: General- oriented x 3, not in distress, speaks in sentences with no effort or accessory muscle use Eyes- anicteric Neck- no JVD Lungs- clear breath sounds bilaterally, no rales/wheezes Heart- normal rate, regular rhythm; no murmurs (+) tenderness - small localized area L lower anterior chest wall area Abdomen- normal bowel sounds, nondistended, soft, nontender Extremities- RLE: no pretibial edema, no calf tenderness LLE: warm skin, (+) small ulcer distal- medial aspect, with scant yellow drainage with surrounding mild erythema mild lower leg edema Neuro- alert, oriented x 3; no gross focal neurologic deficits Skin- warm & dry Results & Data Results & Data Vital Signs (Past 12 Hours) Vital Signs Temp Pulse Pulse Resp BP Pulse Ox O2 Del Method 06/02/23 16:08 51 L 06/02/23 15:46 37.1 C 63 16 136/82 97 Room Air 06/02/23 12:00 37.3 C 65 16 122/69 92 Room Air 06/02/23 08:36 37.3 C 67 16 105/63 91 Room Air 06/02/23 07:16 58 L all noted and reviewed including below (6) Leg wound, left Encounter type: initial encounter Qualified Code(s): S81.802A - Unspecified open wound, left lower leg, initial encounter
[2023-06-02] MEDS: PENTOXIFYLLINE 400MG EXT REL TAB PO SCH (18:37)
[2023-06-02] MEDS: ADVANCED PROBIOTIC 1250 MG CAPSULE PO SCH (18:37)
--- NOTE | 2023-06-02 19:20 | XRay Report ---
XR tibia fibula LT 2V CLINICAL HISTORY: non healing ulcer,distal leg, r/o osteomyelitis COMPARISON STUDY: None. FINDINGS: Soft tissue swelling within the distal left lower leg with an associated 4 cm skin ulcerati on near the medial malleolus. No underlying bony destruction to suggest an osteomyelitis. No fracture or dislocation within the left lower leg. Vascular calcifications are noted. No radiopaque foreign b odies. IMPRESSION: Skin ulceration at the distal left lower leg near the medial malleolus. No underlying dez ny destruction to suggest an osteomyelitis. ACT 112: Negative or not required by law. Electronically signed by: Yuval Loaiza M.D. 06/02/2023 7:19 PM
--- NOTE | 2023-06-02 19:24 | XRay Report ---
XR ribs LT min 2V CLINICAL HISTORY: pain, r/o fracture. Left rib pain. COMPARISON STUDY: Chest 06/01/2023. FINDINGS: No acute rib fractures. No pneumothorax. The heart remains enlarged. There is mild congesti ve change. Hazy appearance of the right lung base. This could be due to a pneumonia or layering pleur al fluid. Calcification noted within the aortic knob. IMPRESSION: 1. No acute rib fractures. No pneumothorax. 2. Cardiomegaly with mild congestive change. 3. Hazy appearance to the right lower lobe. This could be due to layering pleural fluid or developing pneumonia. ACT 112: Negative or not required by law. Electronically signed by: Yuval Loaiza M.D. 06/02/2023 7:22 PM
[2023-06-02] MEDS: ACETAMINOPHEN 1,000 MG/100 ML VIAL IV PRN (22:35)
[2023-06-02] MEDS ORDERED: Nursing to Pharmacy Communication SCH (23:45)
[2023-06-03] MEDS: VANCOMYCIN HCL 1,000 MG in SODIUM CHLORIDE 0.9% 250 ML IV SCH (02:13)
[2023-06-03] MEDS: CEFEPIME 2,000 MG in SYRINGE 0 ML IV SCH ×2 (02:13→08:39)
[2023-06-03 07:52] LABS: Basophils # (auto) 0.03 K/uL (0.00-0.20); Basophils % (auto) 0.3 %; Eosinophils # (auto) 0.13 K/uL (0.00-0.50); Eosinophils % (auto) 1.4 %; Hematocrit (blood only) 35.9 % (42.0-52.0); Hemoglobin 12.1 g/dl (14.0-18.0); Immature Granulocytes # (auto) 0.05 K/uL (0.01-0.20); Immature Granulocytes % (auto) 0.5 %; Lymphocytes # (auto) 1.28 K/uL (1.20-3.40); Lymphocytes % (auto) 13.6 %; Mean Corpuscular Hemoglobin 29.1 pg (25.0-34.0); Mean Corpuscular Hgb Conc 33.7 g/dL (32.0-36.0); Mean Corpuscular Volume 86.3 fL (80.0-100.0); Mean Platelet Volume 11.3 fL (9.4-12.4); Monocytes % (auto) 9.6 %; Neutrophils % (auto) 74.6 %; Platelet Count 129 K/uL (130-400); RDW Coefficient of Variation 13.3 % (11.5-14.5); RDW Standard Deviation 41.5 fL (36.4-46.3); Red Blood Count 4.16 M/uL (4.70-6.10); White Blood Count 9.39 K/ul (4.8-10.8)
[2023-06-03 08:08] LABS: BUN Creatinine Ratio 22.2 (10-20); Creatinine Clr Calc Pharmacy 103.3 ml/min; Est GFR (African American) 108.8 ml/min; Est GFR (Non-African American) 93.9 ml/min; Potassium 3.5 mmol/L (3.5-5.1)
[2023-06-03] MEDS: METOPROLOL TARTRATE 25 MG TAB PO SCH (08:39)
[2023-06-03] MEDS: APIXABAN 5 MG TABLET PO SCH ×2 (08:39→20:12)
[2023-06-03] MEDS: ADVANCED PROBIOTIC 1250 MG CAPSULE PO SCH (08:40)
[2023-06-03] MEDS: ZINC SULFATE 220 MG CAPSULE PO SCH (08:40)
[2023-06-03] MEDS: DONEPEZIL HCL 10 MG TAB PO SCH (08:40)
[2023-06-03] MEDS: PENTOXIFYLLINE 400MG EXT REL TAB PO SCH ×2 (08:40→17:15)
[2023-06-03] MEDS: PANTOprazole 40 MG TAB PO SCH (08:40)
[2023-06-03] MEDS: ROSUVASTATIN CALCIUM 10 MG TAB PO SCH (08:40)
[2023-06-03] MEDS: LACTATED RINGER'S 1,000 ML IV SCH (12:02)
[2023-06-03] MEDS ORDERED: VANCOMYCIN LEVEL ONE (12:30)
--- NOTE | 2023-06-03 12:35 | Pharmacy Report ---
Pharmacy PK ABX Note - Date of Service June 03, 2023 - Assessment and Plan Assessment 72 year old M receiving empiric vancomycin and cefepime for treatment of left leg cellulitis + possible pneumonia. Pertinent microbiologic data includes: Positive MRSA Nasal Swab, blood cultures x 2 growing Morganella. Ankle culture growing Morganella (R to Unasyn) + Serratia (S to everything). Infectious Disease is consulted. Day # 3 of antimicrobial therapy. Plan Vancomycin * vancomycin random today of 9.3 @ 11 demonstrates that current regimen is predicted to have AUC < 400 * Increase maintenance dose: 1000 mg IV every 8 hours * Regimen is predicted to achieve target AUC/TED of 400-600 mg/L.hr * Random level ordered to be ordered if continued > 48 hours Cefepime * 2 g IV q8h - dose increased from q12h in light of positive blood cultures Pharmacy will continue to follow and will adjust dose/frequency as necessary. Thank you. Pharmacy has transitioned to AUC monitoring for vancomycin. AUC/TED is the preferred PK/PD target and is associated with decreased risk of nephrotoxicity compared to traditional trough targets.
--- NOTE | 2023-06-03 13:01 | Infectious Disease Consult ---
Date of Service June 03, 2023 Telehealth Information I performed this visit using a real-time telehealth connection between my location and the patients location ([facility]). After connecting through interactive tele-video, patient was identified by name and date of and/or wristband check.Patient (or authorized healthcare telecommunications sales representative) was informed that this was a telemedicine visit and it was being conducted confidentially over secure lines. My office door was closed and no one else was present in the room with me.Patient (or authorized healthcare telecommunications sales representative) provided consent to proceed with the visit, expressed an understanding of privacy and security of the telemedicine visit, and gave permission to have a hospital telecommunications sales representative in the room in order to assist with the visit and to conduct portions of the visit, as needed. I informed the patient (or authorized healthcare telecommunications sales representative) that I reviewed their record and presented the opportunity for them to ask any questions regarding the visit today. The patient agreed to participate. Assessment & Plan (1) Leg ulcer, left: (2) Cellulitis of left leg: (3) Gram-negative bacteremia: Plan Assessment: Morganella bacteremia LLE cellulitis w/ chronic LLE ulcer Synovitis in L sinus tarsi Posterior tibial tenosynovitis Hx of PVD Plan: - Stop vancomycin iv - Stop cefepime - Start ciprofloxacin 500 mg po bid - Anticipate minimum 14 days of abx therapy from 06/01, ending on 06/14. Final duration of abx should be deteremined as outpatient w/ PCP - Continue wound care w/ close outpatient monitoring for the chronic ulcer w/ primary care or wound care clinic. If s/sx does not improve or worsen, I recommend ortho evaluation for possible debridement - Monitor for bleeding s/sx as ciprofloxacin may increase apixaban level - Signing off The source of bacteremia seems to be his skin and soft tissue infection w/ infectied chronic ulcer. However, the MRI findings suggestive of synovitis in L sinus tarsi is somewhat concerning: is that infectious synovitis? If so, does that need surgical debridement? Is this a location where surgical debridement can be done? I defer the decision to orthopedics. More than 50% of [id number] visit was spent counseling and coordinating care pertaining to the patient's infection diagnosis, additional work-up, and treatment option(s) as well as potential adverse events of the treatment. History of Present Illness History of Present Illness This 72 y/o male (Rene) from correction w/ hx of PVD w/ chronic ulcers, A fib on eliquis, HTN, GERD, severe dementia, chronic b/l LE DVT, and thoracic aneurysm, presented to [facility] on 06/01/23 w/ confusion and worsening pain on the chronic ulcer on LLE, worse when moving and evaluation the wounds. The patient has 2 x 2 cm draining ulcer on L medial ankle. He was on doxycycline from 05/24/23 up to admission. Fever was noted on admission but no leukocytosis. The patient was started on vancomycin and cefepime. Blood cultures were positive w/ Morganella. He complains of pain in L collar bone area x3 weeks after a fall: like pulled muscle, constant, 6 or 7 out of 10, worse w/ exertion. The patient still has pain/tenderness in L leg and ankle but he is a poor historian, demented at baseline. Denies n/v, abd pain, diarrhea, coughing, cp, sob, urinary symptoms, neck pain, or back pain. Allergies Allergy/AdvReac Type Severity Reaction Status Date / Time sulfamethoxazole Allergy Severe Unknown Verified 05/17/23 13:52 [From Bactrim] trimethoprim [From Bactrim] Allergy Severe Unknown Verified 05/17/23 13:52 clindamycin Allergy Intermediate Unknown Verified 05/17/23 13:52 levofloxacin [From Levaquin] Allergy Intermediate Unknown Verified 05/17/23 13:52 onion Allergy Mild Unknown Verified 05/17/23 13:52 mayonnaise Allergy Unknown Verified 05/17/23 13:52 sodium chloride AdvReac Unknown CONTRAINDIC Verified 05/17/23 13:52 [From Cassia Nasal] ATED Home Medications Medication Instructions Recorded Confirmed Type apixaban 5 mg tablet (Eliquis) 5 mg PO BID 06/30/21 06/01/23 History rosuvastatin 10 mg tablet 10 mg PO QAM 11/11/21 06/01/23 History pantoprazole 20 mg tablet,delayed 20 mg PO QAM 10/09/22 06/01/23 History release (Protonix) pentoxifylline 400 mg 400 mg PO BID 10/09/22 06/01/23 History tablet,extended release ammonium lactate 12 % topical cream 1 applic topical DAILY 03/26/23 03/26/23 History ascorbic acid (vitamin C) 500 mg 500 mg PO BID 03/26/23 06/01/23 History chewable tablet cetirizine 10 mg tablet 10 mg PO DAILY 03/26/23 03/26/23 History clotrimazole 1 % topical cream 1 applic topical BID 03/26/23 03/26/23 History donepezil 10 mg tablet 10 mg PO QAM 03/26/23 06/01/23 History melatonin 5 mg chewable tablet 0 mg PO HS 03/26/23 03/26/23 History metoprolol tartrate 50 mg tablet 25 mg PO DAILY 03/26/23 03/26/23 History (Lopressor) zinc sulfate 50 mg zinc (220 mg) 50 mg PO DAILY 03/26/23 06/01/23 History capsule amoxicillin 875 mg-potassium 1 tab PO BID #14 tabs 03/27/23 Rx clavulanate 125 mg tablet doxycycline hyclate 100 mg BID 06/01/23 06/01/23 History metoprolol tartrate 12.5 mg DAILY 06/01/23 06/01/23 History Patient History Medical History CVA (cerebrovascular accident) DVT (deep venous thrombosis) GERD (gastroesophageal reflux disease) H/O: HTN (hypertension) Surgical History No pertinent past surgical history Social History Smoking Status: Unknown if ever smoked Hx Alcohol Use: No Preferred Language: Maori Communication Ability: Impaired Director Of Maternity Services Required: No Current Living Situation: Personal Care Facility Current Living Situation Comment: inmate at [facility] Feels Safe at Home: Hesitant to Answer Review of Systems as HPI and all others negative Physical Exam General: no actue distress Extremity: shallow ulcer, 2 x 2 cm above ankle on lateral side of L leg, no obvious redness over the tarsal area but patient reports tenderness Neuro: confused, conversant but tangential Results & Data Vital Signs (Past 12 Hours) Vital Signs Temp Pulse Pulse Resp BP BP Pulse Ox 06/03/23 11:00 36.9 C 70 15 143/81 H 95 06/03/23 07:35 36.9 C 70 15 155/81 H 95 06/03/23 07:27 67 06/03/23 03:09 36.7 C 75 18 148/82 H 95 O2 Del Method 06/03/23 11:00 Room Air 06/03/23 07:35 Room Air 06/03/23 07:27 06/03/23 03:09 Room Air Laboratory Results Labs WBC 9.39K H 12.1 Plt 129K Cr 0.72 LFT unremarkable EKG (06/01): QTc Int : 469 ms MRI ankle: Moderate synovitis in the sinus tarsi. Mild medial subcutaneous edema with medial soft tissue venous varicosities. Mild posterior tibial tenosynovitis. XR tib/fib: Skin ulceration at the distal left lower leg near the medial malleolus. No underlying bony destruction to suggest an osteomyelitis. XR rib: 1. No acute rib fractures. No pneumothorax. 2. Cardiomegaly with mild congestive change. 3. Hazy appearance to the right lower lobe. This could be due to layering pleural fluid or developing pneumonia. Duplex scan LE artery: No significant stenosis or occlusion within the left lower extremity arterial system. CT head: No acute intracranial hemorrhage, no evidence of acute territorial infarction or other acute intracranial disease process. No metallic foreign body is seen. Diagnostic Findings MRSA screen (06/01): pos Blood cx (06/01/23): Morganella morganii (3 of 4), L ankle surface wound cx (06/01): M morganii (R to amp/sulb only), S marcesc (yarbrough S) L ankle cx (06/01): M morganii, S marcesc Blood cx (06/03): NGTD Medications Administered vancomycin and cefepime
[2023-06-03] MEDS ORDERED: VANCOMYCIN HCL 1,000 MG in SODIUM CHLORIDE 0.9% 250 ML IV SCH (14:00)
--- NOTE | 2023-06-03 15:30 | CT Scan Report ---
CT chest diagnostic wo con CLINICAL HISTORY: r/o pleural effusion vs pneumonia TECHNIQUE: Multidetector row helical CT of the chest was performed. Coronal and sagittal reformations were obtained. Automated dose lowering techniques and/or adjustment according to patient size were u tilized for this exam. CT DOSE: 513.55 mGy.cm Comparison: Comparison is made to CT chest 05/26/2022 and chest radiograph 06/01/2023 FINDINGS: Lungs and pleura: Atelectasis versus scarring is seen in the dependent portions of the lungs. No pleu ral effusion is seen. Heart and pericardium: Cardiomegaly is seen with biatrial enlargement. Vessels: Severe atherosclerotic changes in the aorta and coronary arteries. The ascending aorta measu res 52 mm in diameter. Mediastinum and rita: Subcentimeter lymph nodes are seen. Chest wall and lower neck: Subcentimeter axillary lymph nodes noted. Abdomen: A hiatal hernia is seen. Bones: Degenerative changes in the thoracic spine. IMPRESSION: No evidence of pleural effusions or pneumonia. There is cardiomegaly with ascending aortic aneurysm. Bibasilar atelectasis is seen. ACT 112: Negative or not required by law. Electronically signed by: Jerzy Levine M.D. 06/03/2023 3:28 PM
--- NOTE | 2023-06-03 17:36 | Hospitalist Progress Note ---
Date of Service June 03, 2023 Assessment & Plan (1) Leg ulcer, left: (2) Cellulitis of left leg: (3) Inguinal lymphadenopathy: (4) Chronic bilateral deep venous thrombosis (DVT) of extremities: (5) Venous insufficiency of both lower extremities: (6) Leg wound, left: (7) Venous stasis ulcer of left lower extremity: (8) Confusion: (9) Atrial fibrillation: (10) HLD (hyperlipidemia): Plan per admitting service notes with addendum: Pt is a 72yo incarcerated male with PMHx significant for PVD with chronic ulcers, atrial fibrillation on Eliquis, HTN, GERD, Dementia, Hx of thoracic aneurysm presenting from the skilled nursing with concern for increasing confusion in the setting of a LLE chronic wound. Cellulitis/Infected chronic wound of LLE/PVD/Chronic DVT Bacteremia Per documentation from the skilled nursing, pt was sent over due to "wound on LLE, calf w arm to touch, severe pain when moving and evaluating wound, increased confusion". Guards present at bedside note pt resides in Dementia unit at the skilled nursing and is confused at baseline. They state he usually has eyes closed as he was during the exam. On exam, about a 2cm x 2cm draining ulceration noted on left medial ankle in the setting of noted chronic PVD changes to left ankle and foot Detention paperwork noted temp of 101.9 today, pt currently afebrile WBC wnl, venous doppler of LLE noting only chronic DVT with increased inguinal lymph node size. Pt on Eliquis 5mg BID EKG MONITOR. Consider further imaging of inguinal lymphadenopathy. MRI ankle ordered and pending, wound Cx and Blood Cx x2 ordered by ED and are pending. Was being treated with Doxycycline 100mg BID from 05/24 EKG MONITOR, will hold. Received IV Vancomycin and Cefepime in the ED, continue. Consider narrowing based on culture results. Tylenol 1000mg q8 for mild-mod pain, IV dilaudid 0.25mg q6h for severe pain AM hemoglobin a1c pending- pt with no previous dx of diabetes Continue EKG MONITOR zinc sulfate and trental 400mg BID. Wound consult- appreciate further recommendations. 06/03 arterial doppler: no significant stenosis wound culture: Morganella, Serratia blood cultures: Morganella Ankle MRI: Moderate synovitis in the sinus tarsi. Mild medial subcutaneous edema with medial soft tissue venous varicosities. Mild posterior tibial tenosynovitis. L tibia xray: No osteomyelitis ID consulted, recommend transitioning to patient ciprofloxacin 500 mg p.o. twice daily Allergy list includes Levaquin-reaction unknown Confirming with [facility] Podiatry evaluation pending Left Chest Wall Pain likely muscular etiology Rib xray: No fractures Flexeril as needed Lidoderm patch monitor AMS/Confusion/Dementia Guards present at bedside note pt resides in Dementia unit at the skilled nursing and is confused at baseline. They state he usually has eyes closed as he was during the exam, does not appear to be increasingly confused. Head CT ordered: no acute process Continue EKG MONITOR donepezil 10mg daily 06/02 appears back to baseline Inguinal lymphadenopathy Doppler US of LLE noted increased inguinal lymph node size Previously noted and pt was referred to medical oncology who referred to General Surgery for biopsy. See General Surgery note in chart from 04/2022, pt was for biopsy but refused at that time. Consider further workup now that lymph nodes are increasing in size Chronic Medical Problems: A fib- continue EKG MONITOR metoprolol tartrate 12.5mg daily with Eliquis 5mg BID GERD- per skilled nursing documentation pt on both omeprazole 20mg daily and pantoprazole 20mg daily. Omeprazole discontinued, continue pantoprazole 20mg daily only and increase dose as needed after discharge. HLD- continue EKG MONITOR rosuvastatin FEN/Diet: NPO with speech eval in the setting of AMS/increased confusion, LR@80 DVT prophylaxis: On Eliquis 5mg BID Dispo: Obs, med surg with tele due to a fib CODE STATUS: Pt with signed documentation from the skilled nursing from 2015 noting he wants CPR, resp ventilation, blood products and abx. Does not want tube feeds if the need for that arises. Admission and Anticipated Discharge Date Admission Date: June 02, 2023 Subjective ff up for Leg ulcer, bacteremia, etc seen resting in bed, comfortable alert, conversant states he feels fine overall l chest wall muscle spasm relieved by Flexeril No shortness of breath, palpitations, dizziness No fevers or chills Left lower leg discomfort improving No other new symptom Review of Systems Review of Systems: all noted and negative except for above Physical Exam Physical Exam: General- oriented x 1-2, not in distress, speaks in sentences with no effort or accessory muscle use Eyes- anicteric Neck- no JVD Lungs- clear breath sounds bilaterally, no rales/wheezes Heart- normal rate, regular rhythm; no murmurs Abdomen- normal bowel sounds, nondistended, soft, nontender Extremities-left lower extremity: Ulcer seems to be drying up, no active discharge noted, still with surrounding mild erythema Left lower leg: Mild edema, no tenderness, mild warmth Neuro- alert, oriented x 1-2; no gross focal neurologic deficits Skin- warm & dry Results & Data Results & Data Vital Signs (Past 12 Hours) Vital Signs Temp Pulse Pulse Resp BP Pulse Ox O2 Del Method 06/03/23 15:50 62 06/03/23 15:32 37.2 C 67 15 152/74 H 93 Room Air 06/03/23 08:30 Room Air 06/03/23 11:00 36.9 C 70 15 143/81 H 95 Room Air 06/03/23 07:35 36.9 C 70 15 155/81 H 95 Room Air 06/03/23 07:27 67 (6) Leg wound, left Encounter type: initial encounter Qualified Code(s): S81.802A - Unspecified open wound, left lower leg, initial encounter
[2023-06-03] MEDS: cefTRIAXone SODIUM 2,000 MG in DEXTROSE 5% 50 ML IV SCH (19:49)
[2023-06-03] MEDS ORDERED: Nursing to Pharmacy Communication SCH (23:15)
[2023-06-03] MEDS: ACETAMINOPHEN 1,000 MG/100 ML VIAL IV PRN (23:52)
[2023-06-03] MEDS: CYCLOBENZAPRINE HCL 10 MG TAB PO PRN (23:52)
[2023-06-04] MEDS: LACTATED RINGER'S 1,000 ML IV SCH ×2 (02:28→15:32)
[2023-06-04 06:31] LABS: Basophils # (auto) 0.04 K/uL (0.00-0.20); Basophils % (auto) 0.5 %; Eosinophils # (auto) 0.22 K/uL (0.00-0.50); Hematocrit (blood only) 39.4 % (42.0-52.0); Hemoglobin 13.4 g/dl (14.0-18.0); Immature Granulocytes # (auto) 0.09 K/uL (0.01-0.20); Immature Granulocytes % (auto) 1.2 %; Lymphocytes # (auto) 1.24 K/uL (1.20-3.40); Mean Corpuscular Hemoglobin 29.5 pg (25.0-34.0); Mean Corpuscular Volume 86.6 fL (80.0-100.0); Mean Platelet Volume 11.8 fL (9.4-12.4); Monocytes # (auto) 0.92 K/uL (0.11-0.59); Monocytes % (auto) 12.6 %; Neutrophils # (auto) 4.79 K/uL (1.40-6.50); Neutrophils % (auto) 65.7 %; Platelet Count 115 K/uL (130-400); RDW Coefficient of Variation 13.3 % (11.5-14.5); RDW Standard Deviation 41.5 fL (36.4-46.3); Red Blood Count 4.55 M/uL (4.70-6.10)
[2023-06-04 06:58] LABS: Calcium 9.3 mg/dl (8.6-10.3); Potassium 3.6 mmol/L (3.5-5.1)
[2023-06-04 07:03] LABS: BUN Creatinine Ratio 19.4 (10-20); Est GFR (Non-African American) 96.7 ml/min
[2023-06-04] MEDS: ROSUVASTATIN CALCIUM 10 MG TAB PO SCH (08:01)
[2023-06-04] MEDS: METOPROLOL TARTRATE 25 MG TAB PO SCH (08:01)
[2023-06-04] MEDS: ZINC SULFATE 220 MG CAPSULE PO SCH (08:01)
[2023-06-04] MEDS: APIXABAN 5 MG TABLET PO SCH ×2 (08:01→21:04)
[2023-06-04] MEDS: PENTOXIFYLLINE 400MG EXT REL TAB PO SCH ×2 (08:02→17:46)
[2023-06-04] MEDS: DONEPEZIL HCL 10 MG TAB PO SCH (08:02)
[2023-06-04] MEDS: ADVANCED PROBIOTIC 1250 MG CAPSULE PO SCH (08:02)
[2023-06-04] MEDS: PANTOprazole 40 MG TAB PO SCH (08:02)
--- NOTE | 2023-06-04 14:05 | Hospitalist Progress Note ---
Date of Service June 04, 2023 Assessment & Plan (1) Leg ulcer, left: (2) Cellulitis of left leg: (3) Inguinal lymphadenopathy: (4) Chronic bilateral deep venous thrombosis (DVT) of extremities: (5) Venous insufficiency of both lower extremities: (6) Leg wound, left: (7) Venous stasis ulcer of left lower extremity: (8) Confusion: (9) Atrial fibrillation: (10) HLD (hyperlipidemia): Plan per admitting service notes with addendum: Pt is a 72yo incarcerated male with PMHx significant for PVD with chronic ulcers, atrial fibrillation on Eliquis, HTN, GERD, Dementia, Hx of thoracic aneurysm presenting [facility] with concern for increasing confusion in the setting of a LLE chronic wound. Cellulitis/Infected chronic wound of LLE/PVD/Chronic DVT Bacteremia Per documentation from the [facility], pt was sent over due to "wound on LLE, calf w arm to touch, severe pain when moving and evaluating wound, increased confusion". Guards present at bedside note pt resides in Dementia unit at the [facility] and is confused at baseline. They state he usually has eyes closed as he was during the exam. On exam, about a 2cm x 2cm draining ulceration noted on left medial ankle in the setting of noted chronic PVD changes to left ankle and foot [facility] paperwork noted temp of 101.9 today, pt currently afebrile WBC wnl, venous doppler of LLE noting only chronic DVT with increased inguinal lymph node size. 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 Consider further imaging of inguinal lymphadenopathy. MRI ankle ordered and pending, wound Cx and Blood Cx x2 ordered by ED and are pending. Was being treated with Doxycycline 100mg BID from 05/24 COMIC BOOK DESIGNER, will hold. Received IV Vancomycin and Cefepime in the ED, continue. Consider narrowing based on culture results. Tylenol 1000mg q8 for mild-mod pain, IV dilaudid 0.25mg q6h for severe pain AM hemoglobin a1c pending- pt with no previous dx of diabetes Continue COMIC BOOK DESIGNER zinc sulfate and trental 400mg BID. Wound consult- appreciate further recommendations. 06/03 arterial doppler: no significant stenosis wound culture: Morganella, Serratia blood cultures: Morganella Ankle MRI: Moderate synovitis in the sinus tarsi. Mild medial subcutaneous edema with medial soft tissue venous varicosities. Mild posterior tibial tenosynovitis. L tibia xray: No osteomyelitis ID consulted, recommend transitioning to patient ciprofloxacin 500 mg p.o. twice daily Allergy list includes Levaquin-reaction unknown Confirming with [facility]- moderate reaction to Levaquin, specific reaction not listed Ceftri IV ordered Podiatry evaluation pending 06/04 continue Ceftri IV A fib, Bradycardia hemodynamically stable check TSH hold Metoprolol monitor closely Left Chest Wall Pain likely muscular etiology Rib xray: No fractures Flexeril as needed Lidoderm patch - resolved AMS/Confusion/Dementia Guards present at bedside note pt resides in Dementia unit at the [facility] and is confused at baseline. They state he usually has eyes closed as he was during the exam, does not appear to be increasingly confused. Head CT ordered: no acute process Continue COMIC BOOK DESIGNER donepezil 10mg daily 06/04 appears back to baseline Inguinal lymphadenopathy Doppler US of LLE noted increased inguinal lymph node size Previously noted and pt was referred to medical oncology who referred to General Surgery for biopsy. See General Surgery note in chart from 04/2022, pt was for biopsy but refused at that time. Consider further workup now that lymph nodes are increasing in size Chronic Medical Problems: A fib- continue COMIC BOOK DESIGNER metoprolol tartrate 12.5mg daily with Eliquis 5mg BID GERD- per [facility] documentation pt on both omeprazole 20mg daily and pantoprazole 20mg daily. Omeprazole discontinued, continue pantoprazole 20mg daily only and increase dose as needed after discharge. HLD- continue COMIC BOOK DESIGNER rosuvastatin FEN/Diet: NPO with speech eval in the setting of AMS/increased confusion, LR@80 DVT prophylaxis: On Eliquis 5mg BID Dispo: Obs, med surg with tele due to a fib CODE STATUS: Pt with signed documentation from the [facility] from 2015 noting he wants CPR, resp ventilation, blood products and abx. Does not want tube feeds if the need for that arises. Admission and Anticipated Discharge Date Admission Date: June 02, 2023 Subjective ff up for leg ulcer infection, etc seen resting in bed, comfortable awake, alert, answers most questions appropriately no chest pain, dyspnea, palpitations, dizziness leg pain improving Review of Systems Review of Systems: all noted and negative except for above Physical Exam Physical Exam: General- oriented x 3, not in distress, speaks in sentences with no effort or accessory muscle use Eyes- anicteric Neck- no JVD Lungs- clear breath sounds bilaterally, no rales/wheezes Heart- mild bradycardia 50s, regular rhythm; no murmurs Abdomen- normal bowel sounds, nondistended, soft, nontender Extremities- no pretibial edema, no calf tenderness Neuro- alert, oriented x 3; no gross focal neurologic deficits Skin- warm & dry Results & Data Results & Data Vital Signs (Past 12 Hours) Vital Signs Temp Pulse Pulse Resp BP BP Pulse Ox 06/04/23 12:38 36.8 C 61 18 123/69 97 06/04/23 08:30 06/04/23 07:30 63 06/04/23 07:07 36.7 C 62 18 159/91 H 98 06/04/23 03:48 36.6 C 70 18 147/100 H 97 O2 Del Method 06/04/23 12:38 Room Air 06/04/23 08:30 Room Air 06/04/23 07:30 06/04/23 07:07 Room Air 06/04/23 03:48 Room Air all noted and reviewed including below (6) Leg wound, left Encounter type: initial encounter Qualified Code(s): S81.802A - Unspecified open wound, left lower leg, initial encounter
[2023-06-04] MEDS: cefTRIAXone SODIUM 2,000 MG in DEXTROSE 5% 50 ML IV SCH (17:45)
[2023-06-05] MEDS: DONEPEZIL HCL 10 MG TAB PO SCH (09:02)
[2023-06-05] MEDS: lisinopril 5 MG TAB PO SCH (09:02)
[2023-06-05] MEDS: ROSUVASTATIN CALCIUM 10 MG TAB PO SCH (09:02)
[2023-06-05] MEDS: PENTOXIFYLLINE 400MG EXT REL TAB PO SCH ×2 (09:02→17:52)
[2023-06-05] MEDS: ADVANCED PROBIOTIC 1250 MG CAPSULE PO SCH (09:02)
[2023-06-05] MEDS: ZINC SULFATE 220 MG CAPSULE PO SCH (09:02)
[2023-06-05] MEDS: APIXABAN 5 MG TABLET PO SCH ×2 (09:02→20:33)
[2023-06-05] MEDS: PANTOprazole 40 MG TAB PO SCH (09:02)
--- NOTE | 2023-06-05 09:14 | Electrocardiogram Report ---
Test Reason : Blood Pressure : / mmHG Vent. Rate : 050 BPM Atrial Rate : 220 BPM P-R Int : 000 ms QRS Dur : 098 ms QT Int : 472 ms P-R-T Axes : 000 025 036 degrees QTc Int : 430 ms Atrial fibrillation with slow ventricular response Abnormal ECG When compared with ECG of 01-JUN-2023 08:55, Vent. rate has decreased BY 31 BPM Incomplete right bundle branch block is no longer Present Confirmed by Alfred Carbone [id number]) on 06/05/2023 9:14:23 AM Referred By: [facility] Confirmed By:Alfred Carbone
--- NOTE | 2023-06-05 14:46 | Hospitalist Progress Note ---
Date of Service June 05, 2023 Assessment & Plan (1) Leg ulcer, left: (2) Cellulitis of left leg: (3) Inguinal lymphadenopathy: (4) Chronic bilateral deep venous thrombosis (DVT) of extremities: (5) Venous insufficiency of both lower extremities: (6) Leg wound, left: (7) Venous stasis ulcer of left lower extremity: (8) Confusion: (9) Atrial fibrillation: (10) HLD (hyperlipidemia): Plan per admitting service notes with addendum: Pt is a 72yo incarcerated male with PMHx significant for PVD with chronic ulcers, atrial fibrillation on Eliquis, HTN, GERD, Dementia, Hx of thoracic aneurysm [facility] with concern for increasing confusion in the setting of a LLE chronic wound. Cellulitis/Infected chronic wound of LLE/PVD/Chronic DVT Bacteremia Per documentation from the [facility], pt was sent over due to "wound on LLE, calf warm to touch, severe pain when moving and evaluating wound, increased confusion". Guards present at bedside note pt resides in [facility] unit at the [facility] and is confused at baseline. They state he usually has eyes closed as he was during the exam. On exam, about a 2cm x 2cm draining ulceration noted on left medial ankle in the setting of noted chronic PVD changes to left ankle and foot Alf paperwork noted temp of 101.9 today, pt currently afebrile WBC wnl, venous doppler of LLE noting only chronic DVT with increased inguinal lymph node size. 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 Consider further imaging of inguinal lymphadenopathy. MRI ankle ordered and pending, wound Cx and Blood Cx x2 ordered by ED and are pending. Was being treated with Doxycycline 100mg BID from 05/24 PHOTOENGRAVING PROOFER, will hold. Received IV Vancomycin and Cefepime in the ED, continue. Consider narrowing based on culture results. Tylenol 1000mg q8 for mild-mod pain, IV dilaudid 0.25mg q6h for severe pain AM hemoglobin a1c pending- pt with no previous dx of diabetes Continue PHOTOENGRAVING PROOFER zinc sulfate and trental 400mg BID. Wound consult- appreciate further recommendations. 06/03 arterial doppler: no significant stenosis wound culture: Morganella, Serratia blood cultures: Morganella Ankle MRI: Moderate synovitis in the sinus tarsi. Mild medial subcutaneous edema with medial soft tissue venous varicosities. Mild posterior tibial tenosynovitis. L tibia xray: No osteomyelitis ID consulted, recommend transitioning to patient ciprofloxacin 500 mg p.o. twice daily Allergy list includes Levaquin-reaction unknown Confirming with [facility]- moderate reaction to Levaquin, specific reaction not listed Ceftri IV ordered Podiatry evaluation pending 06/04 continue Ceftri IV A fib, Bradycardia hemodynamically stable check TSH hold Metoprolol monitor closely 06/05 wound healing well continue Ceftri IV day 12/07 US guided access ordered case management manager consulted Left Chest Wall Pain likely muscular etiology Rib xray: No fractures Flexeril as needed Lidoderm patch - resolved AMS/Confusion/Dementia Guards present at bedside note pt resides in [facility] at the [facility] and is confused at baseline. They state he usually has eyes closed as he was during the exam, does not appear to be increasingly confused. Head CT ordered: no acute process Continue PHOTOENGRAVING PROOFER donepezil 10mg daily 06/05 appears back to baseline Inguinal lymphadenopathy Doppler US of LLE noted increased inguinal lymph node size Previously noted and pt was referred to medical oncology who referred to General Surgery for biopsy. See General Surgery note in chart from 04/2022, pt was for biopsy but refused at that time. further work up as outpatient A fib-Metoprolol held due to bradcycardia HR 40-50s HR improving Eliquis 5mg BID GERD- continue Protonix HLD- continue Rosuvastatin FEN/Diet: NPO with speech eval in the setting of AMS/increased confusion, LR@80 DVT prophylaxis: On Eliquis 5mg BID Dispo: return to [facility] with IV ceftriaxone when arrangements have been finalized CODE STATUS: Pt with signed documentation from the [facility] from 2015 noting he wants CPR, resp ventilation, blood products and abx. Does not want tube feeds if the need for that arises. Admission and Anticipated Discharge Date Admission Date: June 02, 2023 Subjective ff up for L leg ulcer, etc seen resting in bed, comfortable states he feels improving overall leg pain improving has mild neck pain, left lateral, worse with movement no chest pain, dyspnea, palpitations, dizziness no other symptoms Review of Systems Review of Systems: all noted and negative except for above Physical Exam Physical Exam: General- oriented x 3, not in distress, speaks in sentences with no effort or accessory muscle use Eyes- anicteric Neck- no JVD Lungs- clear breath sounds bilaterally, no rales/wheezes Heart- normal rate, regular rhythm; no murmurs Abdomen- normal bowel sounds, nondistended, soft, nontender Extremities- no pretibial edema, no calf tenderness Left lower leg: (+) ulcer - healing, no bleeding, discharge less edema, warmth, tenderness Neuro- alert, oriented x 3; no gross focal neurologic deficits Skin- warm & dry Results & Data Results & Data Vital Signs (Past 12 Hours) Vital Signs Temp Pulse Pulse Resp BP BP Pulse Ox 06/05/23 12:34 36.5 C 70 18 125/76 99 06/05/23 09:00 06/05/23 07:26 58 L 06/05/23 07:17 36.8 C 66 18 167/76 H 94 06/05/23 03:56 36.8 C 67 20 150/90 H 92 O2 Del Method 06/05/23 12:34 Room Air 06/05/23 09:00 Room Air 06/05/23 07:26 06/05/23 07:17 Room Air 06/05/23 03:56 Room Air all noted and reviewed including below (6) Leg wound, left Encounter type: initial encounter Qualified Code(s): S81.802A - Unspecified open wound, left lower leg, initial encounter
[2023-06-05] MEDS: CYCLOBENZAPRINE HCL 10 MG TAB PO PRN (16:13)
[2023-06-05] MEDS: cefTRIAXone SODIUM 2,000 MG in DEXTROSE 5% 50 ML IV SCH (17:52)
[2023-06-06] MEDS: PANTOprazole 40 MG TAB PO SCH (09:33)
[2023-06-06] MEDS: ADVANCED PROBIOTIC 1250 MG CAPSULE PO SCH (09:33)
[2023-06-06] MEDS: PENTOXIFYLLINE 400MG EXT REL TAB PO SCH ×2 (09:33→18:16)
[2023-06-06] MEDS: ZINC SULFATE 220 MG CAPSULE PO SCH (09:33)
[2023-06-06] MEDS: APIXABAN 5 MG TABLET PO SCH (09:33)
[2023-06-06] MEDS: DONEPEZIL HCL 10 MG TAB PO SCH (09:34)
[2023-06-06] MEDS: ROSUVASTATIN CALCIUM 10 MG TAB PO SCH (09:34)
[2023-06-06] MEDS: lisinopril 5 MG TAB PO SCH (12:13)
--- NOTE | 2023-06-06 13:11 | Infectious Disease Progress Nt ---
Date of Service June 06, 2023 Telehealth Information Non-billable Note Assessment & Plan (1) Gram-negative bacteremia: Plan: I agree w/ completing total 2 weeks of Ceftriaxone 2 gm qd as the patient is clinically doing well given the history of allergic reaction to fluoroquinolone. Given a relatively low burden of infection, requiring a short course of abx, it is reasonable to use CTX for both Morganella and Serratia as they are no longer considered to have moderate to high risk for clinically significant ampC production. Results & Data Vital Signs (Past 12 Hours) Vital Signs Temp Pulse Pulse Resp BP BP Pulse Ox 06/06/23 09:40 06/06/23 12:18 36.7 C 73 17 132/81 95 06/06/23 08:33 36.8 C 69 19 158/98 H 96 06/06/23 07:44 72 06/06/23 03:13 36.7 C 64 18 154/95 H 94 O2 Del Method 06/06/23 09:40 Room Air 06/06/23 12:18 Room Air 06/06/23 08:33 Room Air 06/06/23 07:44 06/06/23 03:13 Room Air
--- NOTE | 2023-06-06 15:04 | Hospitalist Progress Note ---
Date of Service June 06, 2023 Assessment & Plan (1) Leg ulcer, left: (2) Cellulitis of left leg: (3) Inguinal lymphadenopathy: (4) Chronic bilateral deep venous thrombosis (DVT) of extremities: (5) Venous insufficiency of both lower extremities: (6) Leg wound, left: (7) Venous stasis ulcer of left lower extremity: (8) Confusion: (9) Atrial fibrillation: (10) HLD (hyperlipidemia): Plan per admitting service notes with addendum: Pt is a 72yo incarcerated male with PMHx significant for PVD with chronic ulcers, atrial fibrillation on Eliquis, HTN, GERD, Dementia, Hx of thoracic aneurysm presenting from the half-way with concern for increasing confusion in the setting of a LLE chronic wound. Cellulitis/Infected chronic wound of LLE/PVD/Chronic DVT Bacteremia Per documentation from the half-way, pt was sent over due to "wound on LLE, calf warm to touch, severe pain when moving and evaluating wound, increased confusion". Guards present at bedside note pt resides in Dementia unit at the half-way and is confused at baseline. They state he usually has eyes closed as he was during the exam. On exam, about a 2cm x 2cm draining ulceration noted on left medial ankle in the setting of noted chronic PVD changes to left ankle and foot Longterm paperwork noted temp of 101.9 today, pt currently afebrile WBC wnl, venous doppler of LLE noting only chronic DVT with increased inguinal lymph node size. Pt on Eliquis 5mg BID [employer]. Consider further imaging of inguinal lymphadenopathy. MRI ankle ordered and pending, wound Cx and Blood Cx x2 ordered by ED and are pending. Was being treated with Doxycycline 100mg BID from 05/24 [employer], will hold. Received IV Vancomycin and Cefepime in the ED, continue. Consider narrowing based on culture results. Tylenol 1000mg q8 for mild-mod pain, IV dilaudid 0.25mg q6h for severe pain AM hemoglobin a1c pending- pt with no previous dx of diabetes Continue [employer] zinc sulfate and trental 400mg BID. Wound consult- appreciate further recommendations. 06/03 arterial doppler: no significant stenosis wound culture: Morganella, Serratia blood cultures: Morganella Ankle MRI: Moderate synovitis in the sinus tarsi. Mild medial subcutaneous edema with medial soft tissue venous varicosities. Mild posterior tibial tenosynovitis. L tibia xray: No osteomyelitis ID consulted, recommend transitioning to patient ciprofloxacin 500 mg p.o. 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 They state he usually has eyes closed as he was during the exam, does not appear to be increasingly confused. Head CT ordered: no acute process Continue [employer] donepezil 10mg daily mental status back to baseline Inguinal lymphadenopathy Doppler US of LLE noted increased inguinal lymph node size Previously noted and pt was referred to medical oncology who referred to General Surgery for biopsy. See General Surgery note in chart from 04/2022, pt was for biopsy but refused at that time. further work up as outpatient A fib-Metoprolol held due to bradcycardia HR 40-50s HR improving- now in the 60s Eliquis 5mg BID GERD- continue Protonix HLD- continue Rosuvastatin DVT prophylaxis: On Eliquis 5mg BID Dispo: return to [facility] with IV ceftriaxone Admission and Anticipated Discharge Date Admission Date: June 02, 2023 Subjective ff up for bacteremia, leg ulcer, etc seen resting in bed, comfortable states he feels fine overall leg pain resolved no chest pain neck pain also now resolved reports BL eye itching, some burning, discharge/tearing denies problems with vision no other symptoms states he is ok for discharge today Review of Systems Review of Systems: all noted and negative except for above Physical Exam Physical Exam: General- oriented x 3, not in distress, speaks in sentences with no effort or accessory muscle use Eyes- anicteric Neck- no JVD Lungs- clear BS BL Heart- normal rate, regular rhythm; no murmurs Abdomen- normal bowel sounds, nondistended, soft, nontender Extremities- no pretibial edema, no calf tenderness LLE: very mild edema, erythema, no tenderness/warmth wound- no bleeding or discharge Neuro- alert, oriented x 3; no gross focal neurologic deficits Skin- warm & dry Results & Data Results & Data Vital Signs (Past 12 Hours) Vital Signs Temp Pulse Pulse Resp BP BP Pulse Ox 06/06/23 09:40 06/06/23 12:18 36.7 C 73 17 132/81 95 06/06/23 08:33 36.8 C 69 19 158/98 H 96 06/06/23 07:44 72 06/06/23 03:13 36.7 C 64 18 154/95 H 94 O2 Del Method 06/06/23 09:40 Room Air 06/06/23 12:18 Room Air 06/06/23 08:33 Room Air 06/06/23 07:44 06/06/23 03:13 Room Air all noted and reviewed including below (6) Leg wound, left Encounter type: initial encounter Qualified Code(s): S81.802A - Unspecified open wound, left lower leg, initial encounter
--- NOTE | 2023-06-06 15:31 | Discharge Summary ---
Discharge Summary Date of Service June 06, 2023 Notes For Next Care Provider Further work up and evaluation of ascending aortic aneurysm as outpatient. Medication Changes From Visit Ceftriaxone IV Lisinopril STOP Metoprolol Admission HPI Per Admitting Provider Pt is a 72yo incarcerated male with PMHx significant for PVD with chronic ulcers, atrial fibrillation on Eliquis, HTN, GERD, Dementia, Hx of thoracic aneurysm presenting from the [facility] with concern for increasing confusion in the setting of a LLE chronic wound. Pt sitting with eyes closed, muttering when stimulated but with generally unintelligible speech. Hx obtained from transfer documentation from the [facility], guards present in the room and past records in the chart. Per transfer documentation from the [facility], pt was sent over due to "wound on LLE, calf warm to touch, severe pain when moving and evaluating wound, increased confusion" for the past few days. Guards present at bedside note pt resides in the dementia unit at the [facility] and is confused at baseline. They state he usually has eyes closed and appears sleepy. They state that he was sent over due to concern that the lower extremity wound was making him more sleepy but it appears he is at baseline. Per documentation, pt was being treated at the [facility] with doxycycline 100mg BID from 05/24 with last dose this AM. Chart review shows there has been concern in the past for AMS as well as stroke. However, head imaging was all unremarkable with no acute changes. The guards also note that the pt occasionally winces and complains of pain with any movement. Was being treated with Tylenol 500mg BID PRN with last dose this AM. ED Course: IV Vancomycin and Cefepime Admission Exam Per Admitting Provider General: No acute distress, sitting with eyes closed, mumbling incoherently when stimulated. Skin: about a 2cm x 2cm draining ulceration noted on left medial ankle in the setting of noted chronic PVD changes to left ankle and foot Psych: could not be assessed HEENT: NC/AT CV: Irregular RR Resp: no increased effort of breathing Abdomen: Soft, tender (moves with pain) Extremities: about a 2cm x 2cm draining ulceration noted on left medial ankle in the setting of noted chronic PVD changes to left ankle and foot. Principal Dx & Hospital Course #1 = Principal Diagnosis (1) Leg ulcer, left: (2) Cellulitis of left leg: (3) Inguinal lymphadenopathy: (4) Chronic bilateral deep venous thrombosis (DVT) of extremities: (5) Venous insufficiency of both lower extremities: (6) Leg wound, left: (7) Venous stasis ulcer of left lower extremity: (8) Confusion: (9) Atrial fibrillation: (10) HLD (hyperlipidemia): Plan per admitting service notes with addendum: Pt is a 72yo incarcerated male with PMHx significant for PVD with chronic ulcers, atrial fibrillation on Eliquis, HTN, GERD, Dementia, Hx of thoracic aneurysm presenting from the [facility] with concern for increasing confusion in the setting of a LLE chronic wound. Cellulitis/Infected chronic wound of LLE Bacteremia PVD/Chronic DVT Per documentation from the [facility], pt was sent over due to "wound on LLE, calf warm to touch, severe pain when moving and evaluating wound, increased confusion". Guards present at bedside note pt resides in Dementia unit at the [facility] and is confused at baseline. They state he usually has eyes closed as he was during the exam. On exam, about a 2cm x 2cm draining ulceration noted on left medial ankle in the setting of noted chronic PVD changes to left ankle and foot [facility] paperwork noted temp of 101.9 today, pt currently afebrile WBC wnl, venous doppler of LLE noting only chronic DVT with increased inguinal lymph node size. Pt on Eliquis 5mg BID CONTACT ASSEMBLER. Consider further imaging of inguinal lymphadenopathy. MRI ankle ordered and pending, wound Cx and Blood Cx x2 ordered by ED and are pending. Was being treated with Doxycycline 100mg BID from 05/24 CONTACT ASSEMBLER, will hold. Received IV Vancomycin and Cefepime in the ED, continue. Consider narrowing based on culture results. Tylenol 1000mg q8 for mild-mod pain, IV dilaudid 0.25mg q6h for severe pain AM hemoglobin a1c pending- pt with no previous dx of diabetes Continue CONTACT ASSEMBLER zinc sulfate and trental 400mg BID. Wound consult- appreciate further recommendations. 06/03 arterial doppler: no significant stenosis wound culture: Morganella, Serratia blood cultures: Morganella Ankle MRI: Moderate synovitis in the sinus tarsi. Mild medial subcutaneous edema with medial soft tissue venous varicosities. Mild posterior tibial tenosynovitis. L tibia xray: No osteomyelitis ID consulted, recommend transitioning to patient ciprofloxacin 500 mg p.o. twice daily Allergy list includes Levaquin-reaction unknown [facility]irming with [facility]- moderate reaction to Levaquin, specific reaction not listed Ceftri IV ordered Podiatry evaluation pending 06/04 continue Ceftri IV A fib, Bradycardia hemodynamically stable check TSH hold Metoprolol monitor closely 06/05 wound healing well continue Ceftri IV day 12/07 US guided access ordered case packer and sealer consulted 06/06 wound and cellulitis healing well continue IV Ceftri daily x 10 more days to complete 10 day course CBC, BMP, Liver panel weekly while on IV Ceftri Abnormal CT chest There is cardiomegaly with ascending aortic aneurysm. Bibasilar atelectasis is seen. Further work up, management, and ff up as outpatient Left Chest Wall Pain likely muscular etiology Rib xray: No fractures Flexeril as needed Lidoderm patch - resolved Bacterial Conjunctivitis - Erythromycin ointment x 1 week AMS/Confusion/Dementia Guards present at bedside note pt resides in Dementia unit at the [facility] and is confused at baseline. They state he usually has eyes closed as he was during the exam, does not appear to be increasingly confused. Head CT ordered: no acute process Continue CONTACT ASSEMBLER donepezil 10mg daily mental status back to baseline Inguinal lymphadenopathy Doppler US of LLE noted increased inguinal lymph node size Previously noted and pt was referred to medical oncology who referred to General Surgery for biopsy. See General Surgery note in chart from 04/2022, pt was for biopsy but refused at that time. further work up as outpatient A fib-Metoprolol held due to bradcycardia HR 40-50s HR improving- now in the 60s Eliquis 5mg BID GERD- continue Protonix HLD- continue Rosuvastatin DVT prophylaxis: On Eliquis 5mg BID Dispo: return to [facility] with IV ceftriaxone Discharge Exam General- oriented x 3, not in distress, speaks in sentences with no effort or accessory muscle use Eyes- anicteric Neck- no JVD Lungs- clear BS BL Heart- normal rate, regular rhythm; no murmurs Abdomen- normal bowel sounds, nondistended, soft, nontender Extremities- no pretibial edema, no calf tenderness LLE: very mild edema, erythema, no tenderness/warmth wound- no bleeding or discharge Neuro- alert, oriented x 3; no gross focal neurologic deficits Skin- warm & dry Updated Medication List Medication Instructions Recorded Confirmed Type apixaban 5 mg tablet (Eliquis) 5 mg PO BID 10/05/21 09/06/23 History rosuvastatin 10 mg tablet 10 mg PO QAM 11/11/21 06/01/23 History pantoprazole 20 mg tablet,delayed 20 mg PO QAM 10/09/22 06/01/23 History release (Protonix) pentoxifylline 400 mg 400 mg PO BID 10/09/22 06/01/23 History tablet,extended release ammonium lactate 12 % topical cream 1 applic topical DAILY 03/26/23 03/26/23 History ascorbic acid (vitamin C) 500 mg 500 mg PO BID 03/26/23 06/01/23 History chewable tablet cetirizine 10 mg tablet 10 mg PO DAILY 03/26/23 03/26/23 History clotrimazole 1 % topical cream 1 applic topical BID 03/26/23 03/26/23 History donepezil 10 mg tablet 10 mg PO QAM 03/26/23 06/01/23 History melatonin 5 mg chewable tablet 0 mg PO HS 03/26/23 03/26/23 History metoprolol tartrate 50 mg tablet 25 mg PO DAILY 03/26/23 03/26/23 History (Lopressor) zinc sulfate 50 mg zinc (220 mg) 50 mg PO DAILY 03/26/23 06/01/23 History capsule amoxicillin 875 mg-potassium 1 tab PO BID #14 tabs 03/27/23 Rx clavulanate 125 mg tablet doxycycline hyclate 100 mg BID 06/01/23 06/01/23 History metoprolol tartrate 12.5 mg DAILY 06/01/23 06/01/23 History L.acidop,casei,lactis,rham-B.lact,jannet 2 cap PO DAILY 30 days #60 caps 06/06/23 Rx 625 mg (10 billion cell) capsule (Advanced Probiotic) erythromycin 5 mg/gram (0.5 %) eye 1 applic ophthalmic (eye) QID 7 06/06/23 Rx ointment days #3.5 grams lisinopril 5 mg tablet (Zestril) 5 mg PO QAM 30 days #30 tabs 06/06/23 Rx Hospital Stay Data Consultations 06/01/23 11:32 ED Decision to Admit Stat 06/02/23 08:51 Consult Infectious Diseases Routine Diagnostic Imagining Performed Laboratory Results WBC 7.30 K/ul (4.8-10.8) 06/04/23 06:11 RBC 4.55 M/uL (4.70-6.10) L 06/04/23 06:11 Hgb 13.4 g/dl (14.0-18.0) L 06/04/23 06:11 Hct 39.4 % (42.0-52.0) L 06/04/23 06:11 MCV 86.6 fL (80.0-100.0) 06/04/23 06:11 MCH 29.5 pg (25.0-34.0) 06/04/23 06:11 MCHC 34.0 g/dL (32.0-36.0) 06/04/23 06:11 RDW Std Deviation 41.5 fL (36.4-46.3) 06/04/23 06:11 RDW Coeff of Ruben 13.3 % (11.5-14.5) 06/04/23 06:11 Plt Count 115 K/uL (130-400) L 06/04/23 06:11 MPV 11.8 fL (9.4-12.4) 06/04/23 06:11 Immature Gran % (Auto) 1.2 % 06/04/23 06:11 Neut % (Auto) 65.7 % 06/04/23 06:11 Lymph % (Auto) 17.0 % 06/04/23 06:11 Miller % (Auto) 12.6 % 06/04/23 06:11 Eos % (Auto) 3.0 % 06/04/23 06:11 Baso % (Auto) 0.5 % 06/04/23 06:11 Neut # (Auto) 4.79 K/uL (1.40-6.50) 06/04/23 06:11 Lymph # (Auto) 1.24 K/uL (1.20-3.40) 06/04/23 06:11 Miller # (Auto) 0.92 K/uL (0.11-0.59) H 06/04/23 06:11 Eos # (Auto) 0.22 K/uL (0.00-0.50) 06/04/23 06:11 Baso # (Auto) 0.04 K/uL (0.00-0.20) 06/04/23 06:11 Immature Gran # (Auto) 0.09 K/uL (0.01-0.20) 06/04/23 06:11 Sodium 139 mmol/L (136-145) 06/04/23 06:11 Potassium 3.6 mmol/L (3.5-5.1) 06/04/23 06:11 Chloride 107 mmol/L (98-107) 06/04/23 06:11 Carbon Dioxide 25 mmol/L (21-32) 06/04/23 06:11 Anion Gap 7 (3-11) 06/04/23 06:11 BUN 13 mg/dl (6-23) 06/04/23 06:11 Creatinine 0.67 mg/dl (0.6-1.4) 06/04/23 06:11 Est Cr Clr Drug Dosing 111.0 ml/min 06/04/23 06:11 Est GFR ( Amer) 112.0 ml/min 06/04/23 06:11 Est GFR (Non-Af Amer) 96.7 ml/min 06/04/23 06:11 BUN/Creatinine Ratio 19.4 (10-20) 06/04/23 06:11 Glucose 87 mg/dl (70-99(Fasting)) 06/04/23 06:11 Estimat Average Glucose 117 mg/dl 06/02/23 09:36 Hemoglobin A1c 5.7 % (4.5-5.6) H 06/02/23 09:36 Lactate 1.2 mmol/L (0.4-2.0) 06/01/23 09:30 Calcium 9.3 mg/dl (8.6-10.3) 06/04/23 06:11 Total Bilirubin 1.4 mg/dl (0.2-1.0) H 06/01/23 09:30 AST 20 U/L (13-39) 06/01/23 09:30 ALT 12 U/L (7-52) 06/01/23 09:30 Alkaline Phosphatase 71 U/L (34-104) 06/01/23 09:30 Troponin I High Sens 11.7 pg/ml (0-20) 06/01/23 09:30 Total Protein 8.1 gm/dl (6.0-8.3) 06/01/23 09:30 Albumin 4.7 gm/dl (3.4-5.0) 06/01/23 09:30 Globulin 3.4 gm/dl (2.5-4.0) 06/01/23 09:30 Albumin/Globulin Ratio 1.4 (0.9-2) 06/01/23 09:30 Urine Color Dark Yellow 06/01/23 Unknown Urine Appearance Clear (Clear) 06/01/23 Unknown Urine pH 5.0 (4.5-7.5) 06/01/23 Unknown Ur Specific Melvin 1.025 (1.000-1.030) 06/01/23 Unknown Urine Protein 1+ (Negative) H 06/01/23 Unknown Urine Glucose (UA) Negative (Negative) 06/01/23 Unknown Urine Ketones 2+ (Negative) H 06/01/23 Unknown Urine Blood Negative (Negative) 06/01/23 Unknown Urine Nitrite Negative (Negative) 06/01/23 Unknown Urine Bilirubin Negative (Negative) 06/01/23 Unknown Urine Urobilinogen Negative (Negative) 06/01/23 Unknown Ur Leukocyte Esterase Negative (Negative) 06/01/23 Unknown Urine WBC (Auto) 1-5 /hpf (0-5) 06/01/23 Unknown Urine RBC (Auto) 0-4 /hpf (0-4) 06/01/23 Unknown U Hyaline Cast (Auto) 1-5 /lpf (0-5) 06/01/23 Unknown U Epithel Cells (Auto) 20-30 /lpf (0-5) H 06/01/23 Unknown Urine Bacteria (Auto) Negative (Negative) 06/01/23 Unknown Nasal Screen MRSA (PCR) Positive (Negative) A 06/01/23 17:45 Random Vancomycin 9.3 mcg/ml (10-20) L 06/03/23 10:42 Enterobacterales (PCR) DETECTED (NotDetected) A 06/01/23 09:30 SARS-CoV-2, RNA, NAAT NEGATIVE (NEGATIVE) 06/01/23 13:20 blaIMP Car res Gene PCR Not Detected (NotDetected) 06/01/23 09:30 KPC-Carbap Res Gene PCR Not Detected (NotDetected) 06/01/23 09:30 blaNDM Car Res Gene PCR Not Detected (NotDetected) 06/01/23 09:30 OXA-48 Carbapenem Resis Gene (PCR) Not Detected (NotDetected) 06/01/23 09:30 blaVIM Car Res Gene PCR Not Detected (NotDetected) 06/01/23 09:30 CTX-M Gene Resistance (PCR) Not Detected (NotDetected) 06/01/23 09:30 Bld Cult ID Panel PCR See PCR Comment (NotDetected) 06/01/23 09:30 Impressions Chest X-Ray 06/01/23 09:06 XR chest 1V portable HISTORY: 72 years-old Male CP acute chest pain COMPARISON: 05/17/2023 TECHNIQUE: AP view of the chest FINDINGS: Cardiac silhouette is enlarged. Interval removal of the right-sided PICC. No pneumothorax, pleural effusion, airspace consolidation or pulmonary edema. Bones appear grossly intact. IMPRESSION: Cardiomegaly without acute process. ACT 112: Negative or not required by law. The above report was generated using voice recognition software. It may contain grammatical, syntax or spelling errors. Electronically signed by: Sherwin Goode M.D. 06/01/2023 9:56 AM Venous Doppler Study 06/01/23 09:49 LEFT LOWER EXTREMITY VENOUS DOPPLER HISTORY: Acute pain and swelling of the left lower extremity. History of nonocclusive thrombus within the left iliac, common femoral, superficial femoral, popliteal, posterior tibial and peroneal veins. r/o DVT COMPARISON STUDY: 10/09/2022. FINDINGS: Chronic nonocclusive thrombus is again noted within the common femoral and superficial femoral veins extending into the popliteal vein. Limited evaluation of the peroneal and posterior tibial veins. No acute DVT identified. Subcutaneous edema. Mildly enlarging lymph chain lymph nodes measure up to 1.3 cm in short axis. IMPRESSION: 2. No acute DVT identified. 2. Chronic nonocclusive DVT redemonstrated. 3. Nonspecific mildly enlarged inguinal chain lymph nodes. ACT 112: Negative or not required by law. Electronically signed by: Sherwin Goode M.D. 06/01/2023 1:09 PM Ankle MRI 06/01/23 17:16 Exam(s): MRI LEFT ANKLE Without Contrast EXAM: MR Left Lower Extremity Without Intravenous Contrast, Ankle CLINICAL HISTORY: Reason for exam: chronic wound, r/o osteomyelitis. TECHNIQUE: Multiplanar magnetic resonance images of the left ankle without intravenous contrast. COMPARISON: No relevant prior studies available. FINDINGS: Intact tibiotalar, subtalar, calcaneocuboid, and talonavicular joints. Intact distal Achilles tendon. Intact plantar fascia. Moderate synovitis in the sinus tarsi. Mild posterior tibial tenosynovitis. Intact lateral peroneal tendons. Intact anterior extensor tendons. Mild medial subcutaneous edema with medial soft tissue venous varicosities. Intact syndesmotic ligaments. Intact anterior talofibular and calcaneofibular ligaments. Intact deep and superficial components of the deltoid ligament. IMPRESSION: Moderate synovitis in the sinus tarsi. Mild medial subcutaneous edema with medial soft tissue venous varicosities. Mild posterior tibial tenosynovitis. Electronically signed by: Kyree Cordova MD 06/01/23 20:[address] 06/01/23 17:16 CT head/brain wo con CLINICAL HISTORY: increased confusion Technique: Contiguous axial CT images of the head were acquired from the base of the skull to the vertex without intravenous contrast administration. Images were viewed in brain, subdural and bone windows. Automated dose lowering techniques and/or adjustment according to patient size were utilized for this exam. Comparison: None available at the time of this dictation. Findings: The ventricles, basal cisterns, and cerebral sulci are normal. There is no acute intracranial hemorrhage or evidence of acute territorial infarction. Neither mass effect, shift of the midline structures, nor abnormal extra-axial fluid collections are shown. Imaged portions of the paranasal sinuses and mastoid air cells are clear. The orbits appear normal. There are no acute fractures of the calvaria or scalp swelling. Impression: No acute intracranial hemorrhage, no evidence of acute territorial infarction or other acute intracranial disease process. No metallic foreign body is seen. ACT 112: Negative or not required by law. Electronically signed by: Jerzy Levine M.D. 06/01/2023 7:05 PM KUB X-Ray 06/01/23 17:52 XR KUB/Abdomen 1 view CLINICAL HISTORY: for mri TECHNIQUE: 1 view of the abdomen was obtained. Comparison: None available at the time of this dictation. FINDINGS: IVC filter is seen. Degenerative changes are seen in the visualized skeleton. The bowel gas pattern is nonobstructive. A moderate amount of stool is noted within the large bowel. IMPRESSION: IVC filter without other metallic foreign body. ACT 112: Negative or not required by law. Electronically signed by: Jerzy Levine M.D. 06/01/2023 7:04 PM Duplex Scan Lower Extremity Artery 06/02/23 08:51 US arterial duplex left lower extremity CLINICAL HISTORY: history of peripheral arterial disease, left ankle ulcer COMPARISON STUDY: None. FINDINGS: The patient was unable to tolerate the blood pressure cuff on the calf/ankle due to the patient's skin ulceration. Waveforms within the toes are slightly dampened but symmetric. Normal biphasic to triphasic waveforms seen within the left lower extremity arterial system. There is mild scattered calcified plaque. No significant stenosis or occlusion identified. IMPRESSION: No significant stenosis or occlusion within the left lower extremity arterial system. ACT 112: Negative or not required by law. Electronically signed by: Yuval Loiaza M.D. 06/02/2023 11:57 AM Ribs X-Ray 06/02/23 17:51 XR ribs LT min 2V CLINICAL HISTORY: pain, r/o fracture. Left rib pain. COMPARISON STUDY: Chest 06/01/2023. FINDINGS: No acute rib fractures. No pneumothorax. The heart remains enlarged. There is mild congestive change. Hazy appearance of the right lung base. This could be due to a pneumonia or layering pleural fluid. Calcification noted within the aortic knob. IMPRESSION: 1. No acute rib fractures. No pneumothorax. 2. Cardiomegaly with mild congestive change. 3. Hazy appearance to the right lower lobe. This could be due to layering pleural fluid or developing pneumonia. ACT 112: Negative or not required by law. Electronically signed by: Yuval Loaiza M.D. 06/02/2023 7:22 PM Tibia/Fibula X-Ray 06/02/23 17:52 XR tibia fibula LT 2V CLINICAL HISTORY: non healing ulcer,distal leg, r/o osteomyelitis COMPARISON STUDY: None. FINDINGS: Soft tissue swelling within the distal left lower leg with an associated 4 cm skin ulceration near the medial malleolus. No underlying bony destruction to suggest an osteomyelitis. No fracture or dislocation within the left lower leg. Vascular calcifications are noted. No radiopaque foreign bodies. IMPRESSION: Skin ulceration at the distal left lower leg near the medial malleolus. No underlying bony destruction to suggest an osteomyelitis. ACT 112: Negative or not required by law. Electronically signed by: Yuval Loaiza M.D. 06/02/2023 7:[address] 06/03/23 10:12 CT chest diagnostic wo con CLINICAL HISTORY: r/o pleural effusion vs pneumonia TECHNIQUE: Multidetector row helical CT of the chest was performed. Coronal and sagittal reformations were obtained. Automated dose lowering techniques and/or adjustment according to patient size were utilized for this exam. CT DOSE: 513.55 mGy.cm Comparison: Comparison is made to CT chest 05/26/2022 and chest radiograph 06/01/2023 FINDINGS: Lungs and pleura: Atelectasis versus scarring is seen in the dependent portions of the lungs. No pleural effusion is seen. Heart and pericardium: Cardiomegaly is seen with biatrial enlargement. Vessels: Severe atherosclerotic changes in the aorta and coronary arteries. The ascending aorta measures 52 mm in diameter. Mediastinum and rita: Subcentimeter lymph nodes are seen. Chest wall and lower neck: Subcentimeter axillary lymph nodes noted. Abdomen: A hiatal hernia is seen. Bones: Degenerative changes in the thoracic spine. IMPRESSION: No evidence of pleural effusions or pneumonia. There is cardiomegaly with ascending aortic aneurysm. Bibasilar atelectasis is seen. ACT 112: Negative or not required by law. Pending Results Patient Have Any Pending Studies at Discharge: Yes Discharge Instructions Given to Patient (Per Discharging Provider) PLEASE REFER TO ACCOMPANYING HOSPITAL DISCHARGE SUMMARY FOR DETAILS. Total Time Total Time Spent Total Time Spent (In Minutes): >30 minutes
[2023-06-06] MEDS ORDERED: ERYTHROMYCIN OP OINT 1 GM PKT OP SCH (17:00)
[2023-06-06] MEDS: cefTRIAXone SODIUM 2,000 MG in DEXTROSE 5% 50 ML IV SCH (18:16)
== END 2023-06-06 19:00 | DRG 603 ==
LOC: 2W 08:44 → ED 08:44 → SUATTDRO 12:32 → 2W 16:49